=== PATIENT | female | born 1940 | race African-American/Black ===

== ENCOUNTER 2019-09-08 09:39 | Outpatient (CLI) | payer MEDICARE, SELFPAY ==
[2019-09-08 10:28] LABS: Basophils Percent Auto 0.8 % (0.2-1.2); Eosinophils Absolute Auto 0.1 K/mm3 (0-0.3); Eosinophils Percent Auto 1.3 % (0-4.4); Hematocrit 30.9 % (37.0-47.0); Hemoglobin 9.6 g/dL (12.0-15.0); Immature Granulocyte Absolute 0.01 K/mm3 (0.00-0.031); Immature Granulocyte Percent A 0.3 % (0-0.5); Lymphocytes Absolute Auto 1.11 K/mm3 (0.9-3.2); Lymphocytes Percent Auto 29.2 % (18.3-44.2); Mean Corpuscular HGB Conc 31.1 g/dl (32-36); Mean Corpuscular Hemoglobin 27.5 pg (26-34); Mean Corpuscular Volume 88.5 fl (80-100); Mean Platelet Volume 9.5 fl (7.4-10.4); Monocytes Absolute Auto 0.3 K/mm3 (0.1-0.6); Monocytes Percent Auto 8.9 % (2.6-8.5); Neutrophils Absolute Auto 2.3 K/mm3 (1.3-6.7); Neutrophils Percent Auto 59.5 % (45.5-73.1); Platelet Count Result 341 k/mm3 (150-375); Red Blood Count 3.49 M/mm3 (4.2-5.4); Red Cell Distribution Width 15.6 % (11.5-14.5); White Blood Count 3.8 K/mm3 (4.5-10.0)
[2019-09-08 10:41] LABS: Appearance Urine Clear (Clear); Bilirubin Urine Negative (Negative); Blood Urine Negative (Negative); Color Urine Yellow (Yellow); Glucose Urine UA Negative (Negative); Ketones Urine Negative (Negative); Leukocyte Esterase Ur 3+ LEU/UL (NEGATIVE); Nitrate Urine Negative (Negative); Protein Urine Negative (Negative); Specific Grav Ur 1.015 (1.001-1.035); Urobilinogen Urine 0.2 mg/dL (<2.0); pH Urine 5.5 (5.0-9.0)
[2019-09-08 10:54] LABS: LDL Cholesterol Direct 76 mg/dL
[2019-09-08 11:01] LABS: Add Urine Microscopic? YES
[2019-09-08 11:07] LABS: Thyroid Stimulating Hormone 0.114 uIU/mL (0.465-4.680)
[2019-09-08 11:10] LABS: Mucus Urine Rare /lpf; Squamous Epithelial Cell Urine Rare /hpf (Few); WBC Urine 31-50 /hpf (0-3)
[2019-09-08 11:15] LABS: Alanine Aminotransferase 20 U/L (4-35); Albumin Level 4.2 g/dL (3.5-5.1); Alkaline Phosphatase 61 U/L (38-126); Aspartate Amino Transferase 25 U/L (14-36); Blood Urea Nitrogen 28 mg/dL (7-17); Calcium 9.2 mg/dL (8.4-10.2); Carbon Dioxide 28 mmol/L (22-30); Chloride 101 mmol/L (98-107); Cholesterol 159 mg/dL (0-200); Estimated Glomerular Filt Rate 58; Glucose 107 mg/dL (65-105)
[2019-09-08 11:16] LABS: Bilirubin,Total 0.3 mg/dL (0.2-1.3); Potassium 4.2 mmol/L (3.4-5.0); Sodium 135 mmol/L (137-145)
[2019-09-08 11:34] LABS: Creatinine Urine 57.1 mg/dL
[2019-09-08 11:38] LABS: Microalbumin Urine Random 27.4 mg/L (0-16.7)
[2019-09-08 12:13] LABS: Hemoglobin A1C 5.8 % (<5.7)
[2019-09-08 12:55] LABS: HDL Direct 58 mg/dL; Triglycerides 51 mg/dL (<150)
== END 2019-09-08 09:40 | disposition home or self-care (01) ==
PROVIDERS: PCP Family Medicine; Visit Provider Family Medicine
DX: E11.9 Type 2 diabetes mellitus without complications (principal); E78.2 Mixed hyperlipidemia; I10 Essential (primary) hypertension; R53.83 Other fatigue
CPT/HCPCS: 36415; 80053; 80061; 81001; 81003; 82043; 83036; 84443; 85025; 85027

== ENCOUNTER 2020-01-19 09:45 | Outpatient (CLI) | payer MEDICARE, SELFPAY ==
[2020-01-19 10:16] LABS: Basophils Absolute Auto 0.1 K/mm3 (0.0-0.1); Basophils Percent Auto 1.3 % (0.2-1.2); Eosinophils Absolute Auto 0.1 K/mm3 (0-0.3); Eosinophils Percent Auto 2.4 % (0-4.4); Hematocrit 32.4 % (37.0-47.0); Hemoglobin 10.3 g/dL (12.0-15.0); Immature Granulocyte Absolute 0.01 K/mm3 (0.00-0.031); Immature Granulocyte Percent A 0.2 % (0-0.5); Lymphocytes Percent Auto 28.6 % (18.3-44.2); Mean Corpuscular HGB Conc 31.8 g/dl (32-36); Mean Corpuscular Hemoglobin 28.3 pg (26-34); Mean Platelet Volume 9.7 fl (7.4-10.4); Monocytes Absolute Auto 0.4 K/mm3 (0.1-0.6); Monocytes Percent Auto 7.9 % (2.6-8.5); Neutrophils Absolute Auto 2.7 K/mm3 (1.3-6.7); Neutrophils Percent Auto 59.6 % (45.5-73.1); Platelet Count Result 359 k/mm3 (150-375); Red Blood Count 3.64 M/mm3 (4.2-5.4); Red Cell Distribution Width 15.9 % (11.5-14.5); White Blood Count 4.5 K/mm3 (4.5-10.0)
[2020-01-19 10:26] LABS: Alanine Aminotransferase 18 U/L (4-35); Albumin Level 4.3 g/dL (3.5-5.1); Alkaline Phosphatase 72 U/L (38-126); Anion Gap 14.1 mmol/L (7-16); Aspartate Amino Transferase 25 U/L (14-36); Bilirubin,Total 0.3 mg/dL (0.2-1.3); Blood Urea Nitrogen 21 mg/dL (7-17); Calcium 9.1 mg/dL (8.4-10.2); Carbon Dioxide 25 mmol/L (22-30); Chloride 101 mmol/L (98-107); Estimated Glomerular Filt Rate 58; Glucose 112 mg/dL (65-105); Potassium 4.1 mmol/L (3.4-5.0); Sodium 136 mmol/L (137-145)
[2020-01-19 10:30] LABS: Hemoglobin A1C 5.6 % (<5.7)
[2020-01-19 10:32] LABS: Add Urine Microscopic? YES; Appearance Urine Clear (Clear); Bacteria Urine Trace /hpf; Bilirubin Urine Negative (Negative); Blood Urine Negative (Negative); Color Urine Yellow (Yellow); Glucose Urine UA Negative (Negative); Ketones Urine Negative (Negative); Leukocyte Esterase Ur 2+ LEU/UL (NEGATIVE); Mucus Urine Rare /lpf; Nitrate Urine Negative (Negative); Protein Urine Negative (Negative); RBC Urine 0-2 /hpf (0-2); Specific Grav Ur 1.014 (1.001-1.035); Squamous Epithelial Cell Urine Occasional /hpf (Few); Urobilinogen Urine Negative mg/dL (<2.0); WBC Urine 16-20 /hpf (0-3)
[2020-01-19 10:58] LABS: Thyroid Stimulating Hormone 0.073 uIU/mL (0.465-4.680)
== END 2020-01-19 09:46 | disposition home or self-care (01) ==
PROVIDERS: PCP Family Medicine; Visit Provider Physician Assistant
DX: D64.9 Anemia, unspecified (principal); E11.319 Type 2 diabetes mellitus with unspecified diabetic retinopathy without macular edema; I10 Essential (primary) hypertension; R31.9 Hematuria, unspecified; R79.89 Other specified abnormal findings of blood chemistry
CPT/HCPCS: 36415; 80053; 81001; 83036; 84443; 85025

== ENCOUNTER 2020-05-18 08:22 | Outpatient (CLI) | payer MEDICARE, SELFPAY ==
[2020-05-18 08:54] LABS: Hemoglobin A1C 5.7 % (<5.7)
[2020-05-18 09:02] LABS: Alanine Aminotransferase 14 U/L (4-35); Albumin Level 4.2 g/dL (3.5-5.1); Alkaline Phosphatase 65 U/L (38-126); Anion Gap 10 mmol/L (8-16); Aspartate Amino Transferase 25 U/L (14-36); Bilirubin,Total 0.2 mg/dL (0.2-1.3); Blood Urea Nitrogen 35 mg/dL (7-17); Calcium 9.3 mg/dL (8.4-10.2); Carbon Dioxide 25 mmol/L (22-30); Chloride 105 mmol/L (98-107); Cholesterol 245 mg/dL (0-200); Estimated Glomerular Filt Rate 44; Glucose 119 mg/dL (65-105); HDL Direct 53 mg/dL; Potassium 3.9 mmol/L (3.4-5.0); Sodium 140 mmol/L (137-145); Triglycerides 73 mg/dL (<150)
[2020-05-18 09:13] LABS: LDL Cholesterol Direct 155 mg/dL
== END 2020-05-18 08:23 | disposition home or self-care (01) ==
PROVIDERS: PCP Family Medicine; Visit Provider Physician Assistant
DX: E11.319 Type 2 diabetes mellitus with unspecified diabetic retinopathy without macular edema (principal); E78.2 Mixed hyperlipidemia; I10 Essential (primary) hypertension
CPT/HCPCS: 36415; 80053; 80061; 83036

== ENCOUNTER 2020-06-14 13:02 | Outpatient (CLI) | payer MEDICARE, SELFPAY ==
[2020-06-14 14:07] LABS: Anion Gap 8 mmol/L (8-16); Blood Urea Nitrogen 26 mg/dL (7-17); Calcium 9.1 mg/dL (8.4-10.2); Carbon Dioxide 27 mmol/L (22-30); Chloride 100 mmol/L (98-107); Estimated Glomerular Filt Rate 53; Glucose 104 mg/dL (65-105); Potassium 4.4 mmol/L (3.4-5.0); Sodium 135 mmol/L (137-145)
== END 2020-06-14 13:03 | disposition home or self-care (01) ==
LOC: ANHLAB 13:03
PROVIDERS: PCP Family Medicine; Visit Provider Internal Medicine Cardiovascular Disease
DX: E11.59 Type 2 diabetes mellitus with other circulatory complications (principal); I10 Essential (primary) hypertension
CPT/HCPCS: 36415; 80048

== ENCOUNTER 2020-09-25 10:10 | Outpatient (CLI) | payer MEDICARE, SELFPAY ==
[2020-09-25 10:39] LABS: Hemoglobin A1C 6.5 % (<5.7)
== END 2020-09-25 10:11 | disposition home or self-care (01) ==
LOC: ANHLAB 10:12
PROVIDERS: PCP Family Medicine; Visit Provider Family Medicine
DX: E11.319 Type 2 diabetes mellitus with unspecified diabetic retinopathy without macular edema (principal)
CPT/HCPCS: 36415; 83036

== ENCOUNTER 2021-03-15 10:16 | Outpatient (CLI) | payer MEDICARE, SELFPAY ==
[2021-03-15 10:56] LABS: Alanine Aminotransferase 14 U/L (4-35); Albumin Level 4.4 g/dL (3.5-5.1); Alkaline Phosphatase 81 U/L (38-126); Anion Gap 10 mmol/L (8-16); Aspartate Amino Transferase 20 U/L (14-36); Bilirubin,Total 0.2 mg/dL (0.2-1.3); Blood Urea Nitrogen 37 mg/dL (7-17); Calcium 9.3 mg/dL (8.4-10.2); Carbon Dioxide 15 mmol/L (22-30); Chloride 112 mmol/L (98-107); Cholesterol 294 mg/dL (0-200); Estimated Glomerular Filt Rate 35; Glucose 108 mg/dL (65-110); HDL Direct 62 mg/dL; Potassium 6.5 mmol/L (3.4-5.0); Sodium 137 mmol/L (137-145); Triglycerides 121 mg/dL (<150)
[2021-03-15 11:03] LABS: LDL Cholesterol Direct 155 mg/dL
[2021-03-15 11:23] LABS: Hemoglobin A1C 6.6 % (<5.7)
== END 2021-03-15 10:17 | disposition home or self-care (01) ==
PROVIDERS: PCP Family Medicine; Visit Provider Family Medicine
DX: E11.319 Type 2 diabetes mellitus with unspecified diabetic retinopathy without macular edema (principal); E78.2 Mixed hyperlipidemia; I10 Essential (primary) hypertension; Z00.00 Encounter for general adult medical examination without abnormal findings
CPT/HCPCS: 36415; 80053; 80061; 83036

== ENCOUNTER 2021-03-15 12:07 | Observation (INO) | payer MEDICARE, SELFPAY ==
[2021-03-15] VITALS (12 sets, daily range): BP systolic 127–180; BP diastolic 62–76; PULSE 60–74; RESP 14–21; TEMP 36.1–36.4; O2SAT 97–100
--- NOTE | ~2021-03-15 | XR_ITS ---
EXAMINATION: XR chest 1V portable EXAM DATE: 03/15/2021 15:56 INDICATION: Fatigue. TECHNIQUE: Portable AP frontal chest x-ray was obtained. There is no prior study for comparison. FINDINGS: The lungs are clear. There are no pleural effusions. The cardiomediastinal silhouette is within normal limits. There is no pneumothorax suspected. The bones and soft tissues are unremarkab le. IMPRESSION: No acute cardiopulmonary findings. Reviewed, dictated and finalized at location B.
--- NOTE | 2021-03-15 12:37 | ECG_ITS ---
Measurements Intervals [place] Rate: 63 P: 26 DC: 174 QRS: 5 QRSD: 82 T: 52 QT: 365 QTc: 375 Interpretive Statements SINUS RHYTHM VOLTAGE CRITERIA FOR LVH BASELINE ARTIFACT- I, II, AVR, AVL, AVF, V1, V3-V6 BORDERLINE ECG Electronically Signed On 03-15-2021 14:07:08 CDT by Papo Roper D.O.
--- NOTE | 2021-03-15 13:21 | ED.RECABL ---
HPI - Recheck/Abnormal Lab/Rx General Chief Complaint: Recheck/Abnormal Lab/Rx Stated Complaint: ABN LABS Time Seen by Provider: 03/15/21 12:37 Source: patient and RN notes reviewed Mode of arrival: ambulatory Limitations: no limitations History of Present Illness HPI narrative: This is a 80 year old female who presents for evaluation of abnormal labs. Patient had labs drawn today as outpatient for routine follow up with her doctor. She was told to come to ER because her potassium was elevated. Patient denies any complaints other than malaise that has been present for while. She denies chest pain, cough, fever , nausea, vomiting, abdominal pain or diarrhea. She has not taken any of her medications today. She denies taking potassium supplements. She does states she is not eating a drink a lot because she is taking care of her who is ill. Related Data Home Medications Medication Instructions Recorded Confirmed spironolactone 25 mg tablet 25 mg PO DAILY 09/26/20 03/15/21 chlorthalidone 25 mg PO DAILY 03/15/21 03/15/21 diclofenac sodium 75 mg PO BID 03/15/21 03/15/21 isosorbide mononitrate 60 mg PO DAILY 03/15/21 03/15/21 nebivolol [Bystolic] 20 mg PO DAILY 03/15/21 03/15/21 Allergies Allergy/AdvReac Type Severity Reaction Status Date / Time RADHA Inhibitors Allergy Unknown Unknown Verified 03/15/21 20:46 naproxen Allergy Unknown Unknown Verified 03/15/21 20:46 Review of Systems Review of Systems: All systems reviewed & are unremarkable except as noted in HPI and below PMFSH Past Medical History Medical History (Updated 03/15/21 @ 23:26 by Felicita Barone MD) Aortic stenosis Echo in June 2020 showed mild to moderate aortic stenosis with a valve area of 1.19 cm?. Chronic bilateral low back pain Chronic kidney disease, stage 3 Creatinine ranges between 1.1 and 1.20 Congestive heart failure Diabetic retinopathy Essential (primary) hypertension Mixed hyperlipidemia Type 2 diabetes mellitus Surgical History Surgical History (Updated 03/15/21 @ 22:53 by Fanny Vale PA-C) History of arthroscopy of right knee History of hysterectomy Family History Family History Father Cerebrovascular accident Family history of diabetes mellitus in first degree relative Family history of coronary artery disease Mother Family history of coronary artery disease Social History Social History (Updated 03/15/21 @ 22:54 by Fanny Vale PA-C) Social History: Surrogate decision-maker: Jay Valencia, spouse. CODE STATUS: Full code. Smoking status: Never smoker Alcohol intake: never Substance use: never Substance use type: does not use Additional living arrangements comments: Patient lives in [place] with her . Additional occupation/education comments: Retired. Exam Const: General: no acute distress and alert Orientation/consciousness: patient oriented x3 Eyes: EOM: EOMs intact bilaterally Chest: Chest palpation & inspection: normal inspection of the chest Resp: Effort & Inspection: normal respiratory effort and no retractions Auscultation: clear to auscultation bilaterally Cardio: Rate: regular rate Rhythm: regular rhythm Heart sounds: no murmurs GI: GI Palp: Yes Soft to palpation, No Tenderness to palpation present (GI) and No Guarding due to palpation present (GI) Auscultation: normal bowel sounds Skin: General skin exam: normal color Rashes: no rashes Neuro: General: patient oriented x3, moves all extremities and CN's II-XI intact bilaterally Psych: Mental Status: mental status grossly normal Affect: normal affect Course Reevaluation(s) Reevaluation #1: I Discussed with patient that she will need to be admitted. She has been given medication. She has increased in Creatinine so will hydrate to reduce potassium as well. Date: 03/15/21 Time: 17:00 Consultations Con
[2021-03-15 14:26] LABS: Basophils Absolute Auto 0.1 K/mm3 (0.0-0.1); Basophils Percent Auto 1.1 % (0.2-1.2); Eosinophils Absolute Auto 0.1 K/mm3 (0-0.3); Eosinophils Percent Auto 1.1 % (0-4.4); Hematocrit 37.5 % (37.0-47.0); Hemoglobin 11.5 g/dL (12.0-15.0); Immature Granulocyte Absolute 0.02 K/mm3 (0.00-0.031); Immature Granulocyte Percent A 0.4 % (0-0.5); Lymphocytes Absolute Auto 1.45 K/mm3 (0.9-3.2); Lymphocytes Percent Auto 31.3 % (18.3-44.2); Mean Corpuscular HGB Conc 30.7 g/dl (32-36); Mean Corpuscular Hemoglobin 30.3 pg (26-34); Mean Corpuscular Volume 98.7 fl (80-100); Mean Platelet Volume 9.4 fl (7.4-10.4); Monocytes Absolute Auto 0.3 K/mm3 (0.1-0.6); Neutrophils Absolute Auto 2.8 K/mm3 (1.3-6.7); Neutrophils Percent Auto 60.1 % (45.5-73.1); Platelet Count Result 293 k/mm3 (150-375); Red Cell Distribution Width 12.9 % (11.5-14.5); White Blood Count 4.6 K/mm3 (4.5-10.0)
[2021-03-15 14:41] LABS: Add Urine Microscopic? YES; Appearance Urine Clear (Clear); Bilirubin Urine Negative (Negative); Blood Urine Negative (Negative); Color Urine Straw (Yellow); Glucose Urine UA Negative (Negative); Ketones Urine Negative (Negative); Leukocyte Esterase Ur Trace LEU/UL (Negative); Mucus Urine Rare /lpf; Nitrate Urine Negative (Negative); Protein Urine Negative (Negative); RBC Urine 0-2 /hpf (0-2); Specific Grav Ur 1.014 (1.001-1.035); Urobilinogen Urine Negative mg/dL (<2.0); WBC Urine 0-3 /hpf
[2021-03-15 15:01] LABS: Alanine Aminotransferase 15 U/L (4-35); Albumin Level 4.5 g/dL (3.5-5.1); Alkaline Phosphatase 80 U/L (38-126); Anion Gap 12 mmol/L (8-16); Aspartate Amino Transferase 23 U/L (14-36); Bilirubin,Total 0.2 mg/dL (0.2-1.3); Blood Urea Nitrogen 35 mg/dL (7-17); Calcium 9.4 mg/dL (8.4-10.2); Carbon Dioxide 15 mmol/L (22-30); Chloride 111 mmol/L (98-107); Estimated Glomerular Filt Rate 35; Glucose 89 mg/dL (65-110); Magnesium 1.8 mg/dL (1.6-2.3); Potassium 6.3 mmol/L (3.4-5.0); Sodium 138 mmol/L (137-145)
[2021-03-15] MEDS: SODIUM CHLORIDE 0.9% IV 500 ML 999 ML IV CONT (15:20)
[2021-03-15] MEDS: SODIUM POLYSTYRENE SULFONONATE 15 GM/60 ML BTL 30 GM PO (15:20)
[2021-03-15] MEDS: ALBUTEROL SULFATE NEB 2.5 MG/0.5 ML INH 5 MG INHALATION (15:25)
[2021-03-15] MEDS: CALCIUM GLUC 1,000 MG/NS 50 ML 1,000 MG/50 ML BAG 100 MG IVPB (15:27)
[2021-03-15] MEDS: SODIUM BICARBONATE 8.4% 50 MEQ/50 ML VIAL IV PUSH (15:28)
[2021-03-15 15:31] LABS: Alveolar/Arterial O2 Gradient 19.5 mmHg; Base Excess ABG -10.6 mEq/l (+/-2.0); Device ROOM AIR; Fractional Inspired Oxygen 21 %; HCO3 ABG 14.4 mEq/l (22.0-26.0); Methemoglobin ABG 0.2 %THb (0-1.5); Oxygen Content ABG 15.4 %vol (16.0-22.0); Oxygen Saturation ABG 96.8 % (95.0-100.0); Oxyhemoglobin 96.4 % THb (90.0-100.0); PCO2 ABG 29.1 mmHg (35.0-45.0); PO2 ABG 95.4 mmHg (80.0-100.0); PO2 FiO2 Ratio Arterial Blood 4.54 %; Reduced Hemoglobin 3.4 %THb (0-5.0); Site Drawn RIGHT BRACHIAL; Total Hemoglobin 11.3 g/dL (12.0-18.0); pH ABG 7.311 (7.350-7.450)
[2021-03-15] MEDS: DEXTROSE 50% 25 GM/50 ML SYRINGE IV PUSH (16:50)
[2021-03-15] MEDS: INSULIN HUMAN REGULAR (*BKC) 100 UNITS/ML 10 UNITS IV PUSH (16:50)
[2021-03-15 17:36] LABS: Anion Gap 9 mmol/L (8-16); Blood Urea Nitrogen 33 mg/dL (7-17); Calcium 9.6 mg/dL (8.4-10.2); Carbon Dioxide 18 mmol/L (22-30); Chloride 110 mmol/L (98-107); Estimated Glomerular Filt Rate 41; Glucose 247 mg/dL (65-110); Potassium 6.1 mmol/L (3.4-5.0); Sodium 137 mmol/L (137-145)
[2021-03-15 18:27] LABS: Glucose Point of Care 97 mg/dl (65-105)
--- NOTE | 2021-03-15 19:12 | PC.NURSE ---
Report received and care of pt assumed at this time.
--- NOTE | 2021-03-15 20:45 | ADMGEN ---
This patient, Carmelina Valencia, was admitted to 2 Medical Room 259-01@ 1945. Patient/family oriented to hospital policies and general routines including ID bracelet, bed and alarms, visiting hours, pain management, procedures, bathroom and other care routines, personal items, smoking policy, room service/diet, and visiting hours. Information on how to activate the Rapid Response Team has been discussed. Patient/Family are encouraged to report perceived risks to care and to ask questions if they do not understand what they are told or what they should do.
[2021-03-15] MEDS: SODIUM CHLORIDE 0.9% IV 1,000 ML 75 ML IV CONT (21:06)
[2021-03-15 21:22] LABS: Glucose Point of Care 80 mg/dl (65-105)
--- NOTE | 2021-03-15 22:35 | PM.IMHP ---
H&P: HPI History of Present Illness Date/Time: 03/15/21 22:30 Chief Complaint: High potassium. Narrative: This is a 80-year old female with hypertension, congestive heart failure, chronic kidney disease, and diabetes who presented to the emergency department earlier today at the direction of her primary care provider for evaluation after she was found to have high potassium on a lab draw done in anticipation of an upcoming routine appointment. Hyperkalemia was confirmed in the emergency department with a potassium level of 6.3. Additionally her creatinine was elevated from baseline. Other than some mild fatigue which she attributes to caring for her sick at home, she has no complaints. She is not on potassium supplementation but is on a potassium sparing diuretic though she has been on that for quite some time. She has not been started on any new medications recently nor has she had any change in dosing. Her oral intake has been somewhat decreased if she has been busy caring for her but she has not had any nausea, vomiting, or diarrhea. Review of Systems Review of Systems: Twelve systems were reviewed with pertinent positives and negatives as per HPI. No fever, chills, or sweats. No syncope or near syncope. She denies cold and flu symptoms. No exposure to those positive for COVID 19. No chest pain or shortness of breath. She has not noticed a change in urine output. No significant NSAID use. She had an episode of cramping in her legs a couple weeks ago but that has since resolved. Except as documented, all other systems were reviewed and are negative. [facility] Past Medical History Medical History Aortic stenosis Echo in June 2020 showed mild to moderate aortic stenosis with a valve area of 1.19 cm?. Chronic bilateral low back pain Chronic kidney disease, stage 3 Creatinine ranges between 1.1 and 1.20 Congestive heart failure Diabetic retinopathy Essential (primary) hypertension Mixed hyperlipidemia Type 2 diabetes mellitus Surgical History Surgical History History of arthroscopy of right knee History of hysterectomy Family History Family History Father Cerebrovascular accident Family history of diabetes mellitus in first degree relative Family history of coronary artery disease Mother Family history of coronary artery disease Social History Social History (Updated 03/15/21 @ 23:53 by Fanny Vale PA-C) Social History: Surrogate decision-maker: Jay Valencia, spouse. CODE STATUS: Full code. Smoking status: Never smoker Alcohol intake: never Substance use: never Substance use type: does not use Additional living arrangements comments: Patient lives in [place] with her . 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 Meds Home Medications and Allergies Home Medications Medication Instructions Recorded Confirmed Type metformin 1,000 mg tablet 1,000 mg PO DAILY #90 tablet 05/22/20 03/15/21 Rx azelastine 137 mcg (0.1 %) nasal 1 spray INTRANASAL Q12H #30 ml 09/26/20 03/15/21 Rx spray aerosol spironolactone 25 mg tablet 25 mg PO DAILY 09/26/20 03/15/21 History losartan 50 mg tablet 50 mg PO DAILY #90 tablet 11/23/20 03/15/21 Rx verapamil 240 mg 24 hr 240 mg PO DAILY #90 cap 01/21/21 03/15/21 Rx capsule,extended release chlorthalidone 25 mg PO DAILY 03/15/21 03/15/21 History diclofenac sodium 75 mg PO BID 03/15/21 03/15/21 History isosorbide mononitrate 60 mg PO DAILY 03/15/21 03/15/21 History nebivolol [Bystolic] 20 mg PO DAILY 03/15/21 03/15/21 History Allergies Allergy/AdvReac Type Severity Reaction Status Date / Time RADHA Inhibitors Allergy Unknown Unknown Verified 03/15/21 20:46 naproxen Allergy Unknown Unknown Verified 03/15/21 20:46 Vital Signs V
[2021-03-15 23:20] LABS: Anion Gap 9 mmol/L (8-16); Blood Urea Nitrogen 30 mg/dL (7-17); Carbon Dioxide 16 mmol/L (22-30); Chloride 115 mmol/L (98-107); Estimated Glomerular Filt Rate 44; Glucose 95 mg/dL (65-110); Potassium 5.4 mmol/L (3.4-5.0); Sodium 140 mmol/L (137-145)
[2021-03-15 23:23] LABS: Hemoglobin A1C 6.6 % (<5.7)
[2021-03-16] VITALS: PULSE 60
[2021-03-16 00:43] LABS: Lactic Acid Reflex 0.5 mmol/L (0.7-2.1)
[2021-03-16] MEDS: LACTATED RINGERS 1,000 ML 100 ML IV CONT (01:18)
[2021-03-16 04:00] VITALS: PULSE 56
[2021-03-16 05:43] LABS: Basophils Percent Auto 0.6 % (0.2-1.2); Eosinophils Absolute Auto 0.1 K/mm3 (0-0.3); Eosinophils Percent Auto 1.9 % (0-4.4); Hematocrit 30.5 % (37.0-47.0); Hemoglobin 9.6 g/dL (12.0-15.0); Immature Granulocyte Absolute 0.01 K/mm3 (0.00-0.031); Immature Granulocyte Percent A 0.2 % (0-0.5); Lymphocytes Absolute Auto 1.47 K/mm3 (0.9-3.2); Lymphocytes Percent Auto 31.1 % (18.3-44.2); Mean Corpuscular HGB Conc 31.5 g/dl (32-36); Mean Corpuscular Volume 95.3 fl (80-100); Mean Platelet Volume 9.3 fl (7.4-10.4); Monocytes Absolute Auto 0.5 K/mm3 (0.1-0.6); Monocytes Percent Auto 10.4 % (2.6-8.5); Neutrophils Absolute Auto 2.6 K/mm3 (1.3-6.7); Neutrophils Percent Auto 55.8 % (45.5-73.1); Platelet Count Result 227 k/mm3 (150-375); Red Cell Distribution Width 12.8 % (11.5-14.5); White Blood Count 4.7 K/mm3 (4.5-10.0)
[2021-03-16 05:50] VITALS: BP 142/64; PULSE 58; RESP 18; TEMP 36.8; O2SAT 100
[2021-03-16 05:51] VITALS: BMI 23.6
[2021-03-16 05:56] LABS: Anion Gap 9 mmol/L (8-16); Blood Urea Nitrogen 26 mg/dL (7-17); Calcium 8.9 mg/dL (8.4-10.2); Carbon Dioxide 17 mmol/L (22-30); Chloride 114 mmol/L (98-107); Estimated CRCL calculation 24 ml/min; Estimated Glomerular Filt Rate 53; Glucose 80 mg/dL (65-110); Magnesium 1.6 mg/dL (1.6-2.3); Potassium 4.6 mmol/L (3.4-5.0); Sodium 140 mmol/L (137-145)
[2021-03-16 07:34] LABS: Glucose Point of Care 77 mg/dl (65-105)
[2021-03-16 08:00] VITALS: PULSE 58
[2021-03-16 08:19] VITALS: PULSE 76
[2021-03-16] MEDS: VERAPAMIL HCL ER 240 MG TABLET.ER PO (08:19)
[2021-03-16] MEDS: ISOSORBIDE MONONITRATE 60 MG TAB.ER.24H PO (08:19)
[2021-03-16] MEDS: AZELASTINE HCL NASAL 0.1% 137 MCG/SPR 30 ML BTL 1 SPRAY NASAL (08:19)
[2021-03-16] MEDS: NEBIVOLOL HCL 5 MG TABLET 20 MG PO (08:19)
[2021-03-16 11:51] LABS: Glucose Point of Care 125 mg/dl (65-105)
[2021-03-16 12:00] VITALS: PULSE 61
--- NOTE | 2021-03-16 13:17 | PM.DS ---
DS: Admitting Diagnosis Discharge Date 03/16/2021. Admitting Diagnosis SANDY Hyperkalemia Metabolic acidosis DS: Discharge Diagnosis Discharge Diagnosis (1) Acute on chronic renal failure: Code(s): N17.9 - Acute kidney failure, unspecified; N18.9 - Chronic kidney disease, unspecified Status: Acute (2) Metabolic acidosis: Code(s): E87.2 - Acidosis Status: Acute (3) Hyperkalemia: Code(s): E87.5 - Hyperkalemia Status: Acute DS: Summary Hospital Course Reason for hospitalization: Abnormal labs Hospital Course: This is a 80-year old lady with a past medical history including but not limited to hypertension, congestive heart failure, chronic kidney disease, and diabetes who presented to the emergency department on 03/15/2021 at the direction of her primary care provider for evaluation after she was found to have high potassium on a lab drawn done in anticipation of an upcoming routine appointment. Hyperkalemia was confirmed in the emergency department with a potassium level of 6.3. Additionally her creatinine was elevated from baseline. Other than some mild fatigue which she attributes to caring for her sick at home, she offered no complaints. She had not been on potassium supplementation but has been chronically on a ARB and a potassium sparing diuretic. She has not been started on any new medications recently nor has she had any change in dosing. Her oral intake has been somewhat decreased as she has been busy caring for her but she has not had any nausea, vomiting, or diarrhea. Her hyperkalemia was attributed to worsening renal function while on spironolactone. She was treated conservatively by witholding spironolactone and losartan. For her acute on chronic renal failure: as patient appears a bit dry on exam and she does admit to a decreased oral intake recently , she was rehydrated overnight with repeat renal function in a.m. showing improvement of creatinine from 1.4 to 1.2. Her metabolic acidosis was most likely due to worsening renal function Metformin was held and normal saline was changed to LR. She carries a diagnosis of essential (primary) hypertension: Her blood pressures were reviewed and they have been running anywhere from the 140s to 150s systolic. She was discharged home with instruction to monitor her BP daily while on chlorthalidone only.Type 2 diabetes mellitus: Metformin currently was held given worsening renal function and metabolic acidosis. As her SANDY has resolved, she can resume home metformin. Status at Discharge Overall status at discharge: patient is progressing back to baseline Time Spent with Patient Time attestation: Total time spent providing and/or coordinating discharge services: Time spent: Less than 30 minutes Exam Narrative: GENERAL: The patient is alert and oriented, in no apparent distress. He is pleasant and conversant in full sentences. HEENT: Pupils are equally round and briskly reactive to light. Extraocular muscles are intact. Oral mucous membranes are moist without lesions. NECK: The patient has no noted JVD. No adenopathy is appreciated. CHEST/LUNGS: Lungs are clear bilaterally without rhonchi, rales, or wheezes. There is no subcutaneous air appreciated. There is no tenderness to the chest wall. HEART: The patient has a regular rate and rhythm. No murmurs, rubs, or gallops are appreciated. Distal pulses are 2+. No carotid bruits appreciated. ABDOMEN: The patient?s abdomen is soft, nontender, and nondistended. Bowel sounds are positive. No organomegaly is appreciated. No masses are appreciated. EXTREMITIES: The patient has no peripheral edema. SKIN: The patient?s skin is warm and dry, without rashes or lesions. PSYCHIATRIC: The patient has normal mental status and has an appropriate affect. NEUROLOGIC: The patient has 5/5 strength to the upper and lower extremities bilaterally. Sensation is intact. Gait was not tested. DS: Data Data Completed and Pending
== END 2021-03-16 13:10 | disposition home or self-care (01) ==
LOC: ANHED 12:47 → ANH2MED 22:21
PROVIDERS: Physician Assistant; Admitting Provider Internal Medicine; Emergency Provider General Practice; PCP Family Medicine; Visit Provider Internal Medicine
DX: E87.5 Hyperkalemia (principal); I13.0 Hypertensive heart and chronic kidney disease with heart failure and stage 1 through stage 4 chronic kidney disease, or unspecified chronic kidney disease; E11.22 Type 2 diabetes mellitus with diabetic chronic kidney disease; N18.30 Chronic kidney disease, stage 3 unspecified; I50.9 Heart failure, unspecified; N17.9 Acute kidney failure, unspecified; E87.2 Acidosis; Z79.84 Long term (current) use of oral hypoglycemic drugs
CPT/HCPCS: 36415; 36600; 71045; 80048; 80053; 80061; 81001; 82375; 82805; 82948; 83036; 83050; 83605; 83735; 85025; 93005; 94640; 96361; 96365; 96375; 99285; A9270; G0378; J0610; J1815; J7030; J7040; J7120

== ENCOUNTER 2021-03-20 10:27 | Outpatient (CLI) | payer MEDICARE, SELFPAY ==
[2021-03-20 12:04] LABS: Alanine Aminotransferase 14 U/L (4-35); Albumin Level 4.5 g/dL (3.5-5.1); Alkaline Phosphatase 75 U/L (38-126); Anion Gap 9 mmol/L (8-16); Aspartate Amino Transferase 23 U/L (14-36); Bilirubin,Total 0.3 mg/dL (0.2-1.3); Blood Urea Nitrogen 31 mg/dL (7-17); Calcium 9.4 mg/dL (8.4-10.2); Carbon Dioxide 20 mmol/L (22-30); Chloride 107 mmol/L (98-107); Estimated Glomerular Filt Rate 41; Glucose 112 mg/dL (65-110); Potassium 4.7 mmol/L (3.4-5.0); Sodium 136 mmol/L (137-145)
== END 2021-03-20 10:28 | disposition home or self-care (01) ==
LOC: ANHLAB 10:29
PROVIDERS: PCP Family Medicine; Visit Provider Family Medicine
DX: E87.5 Hyperkalemia (principal)
CPT/HCPCS: 36415; 80053

== ENCOUNTER 2021-07-20 10:06 | Outpatient (CLI) | payer MEDICARE, SELFPAY ==
[2021-07-20 11:28] LABS: Hemoglobin A1C 7.3 % (<5.7)
[2021-07-20 12:55] LABS: Alanine Aminotransferase 21 U/L (4-35); Albumin Level 4.3 g/dL (3.5-5.1); Alkaline Phosphatase 87 U/L (38-126); Anion Gap 9 mmol/L (8-16); Aspartate Amino Transferase 27 U/L (14-36); Bilirubin,Total 0.3 mg/dL (0.2-1.3); Blood Urea Nitrogen 46 mg/dL (7-17); Calcium 9.1 mg/dL (8.4-10.2); Carbon Dioxide 21 mmol/L (22-30); Chloride 100 mmol/L (98-107); Estimated Glomerular Filt Rate 26; Glucose 126 mg/dL (65-110); Sodium 130 mmol/L (137-145)
== END 2021-07-20 10:07 | disposition home or self-care (01) ==
PROVIDERS: PCP Family Medicine; Visit Provider Physician Assistant
DX: E11.9 Type 2 diabetes mellitus without complications (principal); E87.5 Hyperkalemia
CPT/HCPCS: 36415; 80053; 83036

== ENCOUNTER 2021-08-06 14:09 | Outpatient (CLI) | payer MEDICARE, SELFPAY ==
[2021-08-06 15:38] LABS: Alanine Aminotransferase 12 U/L (4-35); Albumin Level 4.3 g/dL (3.5-5.1); Alkaline Phosphatase 81 U/L (38-126); Anion Gap 14 mmol/L (8-16); Aspartate Amino Transferase 20 U/L (14-36); Bilirubin,Total 0.3 mg/dL (0.2-1.3); Blood Urea Nitrogen 47 mg/dL (7-17); Carbon Dioxide 17 mmol/L (22-30); Chloride 95 mmol/L (98-107); Estimated Glomerular Filt Rate 31; Glucose 98 mg/dL (65-110); Potassium 5.6 mmol/L (3.4-5.0); Sodium 126 mmol/L (137-145)
== END 2021-08-06 14:10 | disposition home or self-care (01) ==
PROVIDERS: PCP Family Medicine; Visit Provider Family Medicine
DX: E87.5 Hyperkalemia (principal)
CPT/HCPCS: 36415; 80053

== ENCOUNTER 2021-08-12 12:32 | Outpatient (CLI) | payer MEDICARE, SELFPAY ==
[2021-08-12 13:25] LABS: Anion Gap 9 mmol/L (8-16); Blood Urea Nitrogen 35 mg/dL (7-17); Calcium 9.1 mg/dL (8.4-10.2); Carbon Dioxide 21 mmol/L (22-30); Chloride 96 mmol/L (98-107); Estimated Glomerular Filt Rate 44; Glucose 113 mg/dL (65-110); Potassium 5.2 mmol/L (3.4-5.0); Sodium 126 mmol/L (137-145)
== END 2021-08-12 12:33 | disposition home or self-care (01) ==
PROVIDERS: PCP Family Medicine; Visit Provider Family Medicine
DX: E87.5 Hyperkalemia (principal)
CPT/HCPCS: 36415; 80048

== ENCOUNTER 2021-08-29 14:52 | Outpatient (CLI) | payer MEDICARE, SELFPAY ==
--- NOTE | ~2021-08-29 | MM_ITS ---
EXAMINATION: MM screening [facility] BI w ed HISTORY: Screening mammogram TECHNIQUE: Craniocaudal and mediolateral oblique 3-D tomosynthesis images were obtained and synthetic 2-D images were generated. CAD analysis was submitted and interpreted. COMPARISON: 12/15/2017, 10/21/2016, 10/02/2015 BREAST PARENCHYMAL COMPOSITION: The breasts are extremely dense, which lowers the sensitivity of mamm ography. FINDINGS: There is no evidence of suspicious mass, calcification, or architectural distortion to sugg est malignancy in either breast. There has been no suspicious interval change. IMPRESSION: 1. No mammographic evidence of malignancy. 2. Recommend routine screening mammography in one year. BI-RADS Category 1: Negative Reviewed, dictated and finalized at location A. E PRINCIPAL
== END 2021-08-29 14:53 | disposition home or self-care (01) ==
LOC: ANHIMG 14:53
PROVIDERS: PCP Family Medicine; Visit Provider Family Medicine
DX: Z12.31 Encounter for screening mammogram for malignant neoplasm of breast (principal)
CPT/HCPCS: 77063; 77067

== ENCOUNTER 2021-12-09 12:40 | Outpatient (CLI) | payer MEDICARE, SELFPAY ==
[2021-12-09 13:28] LABS: Hematocrit 32.3 % (37.0-47.0); Hemoglobin 10.1 g/dL (12.0-15.0); Mean Corpuscular HGB Conc 31.3 g/dl (32-36); Mean Corpuscular Hemoglobin 28.2 pg (26-34); Mean Corpuscular Volume 90.2 fl (80-100); Mean Platelet Volume 9.4 fl (7.4-10.4); Platelet Count Result 329 k/mm3 (150-375); Red Blood Count 3.58 M/mm3 (4.2-5.4); Red Cell Distribution Width 13.1 % (11.5-14.5); White Blood Count 9.6 K/mm3 (4.5-10.0)
[2021-12-09 13:44] LABS: Hemoglobin A1C 7.5 % (<5.7)
[2021-12-09 13:45] LABS: Alanine Aminotransferase 25 U/L (6-35); Albumin Level 4.1 g/dL (3.5-5.1); Alkaline Phosphatase 88 U/L (38-126); Anion Gap 7 mmol/L (8-16); Aspartate Amino Transferase 26 U/L (14-36); Bilirubin,Total 0.2 mg/dL (0.2-1.3); Blood Urea Nitrogen 24 mg/dL (7-17); Calcium 8.5 mg/dL (8.4-10.2); Carbon Dioxide 26 mmol/L (22-30); Chloride 98 mmol/L (98-107); Cholesterol 261 mg/dL (0-200); Estimated Glomerular Filt Rate 53; Glucose 132 mg/dL (65-110); HDL Direct 63 mg/dL; Potassium 3.8 mmol/L (3.4-5.0); Sodium 131 mmol/L (137-145); Triglycerides 62 mg/dL (<150)
[2021-12-09 13:56] LABS: LDL Cholesterol Direct 135 mg/dL
[2021-12-09 13:58] LABS: Creatinine Urine 49.1 mg/dL
[2021-12-09 14:03] LABS: MALB Creatinine Ratio 67.6 mg/g (0-30); Microalbumin Urine Random 33.2 mg/L (0-16.7)
[2021-12-09 14:10] LABS: Thyroid Stimulating Hormone 0.047 uIU/mL (0.465-4.680)
== END 2021-12-09 12:41 | disposition home or self-care (01) ==
LOC: ANHLAB 12:42
PROVIDERS: PCP Family Medicine; Visit Provider Family Medicine
DX: E11.9 Type 2 diabetes mellitus without complications (principal); E78.2 Mixed hyperlipidemia; I10 Essential (primary) hypertension
CPT/HCPCS: 36415; 80053; 80061; 82043; 83036; 84443; 85027

== ENCOUNTER 2021-12-11 11:27 | Outpatient (CLI) | payer MEDICARE, SELFPAY ==
--- NOTE | ~2021-12-11 | XR_ITS ---
EXAMINATION: XR abdomen/kub 1V DATE: 12/11/2021 11:46 INDICATION: Constipation, unspecified. TECHNIQUE: A supine view of the abdomen on 2 radiographs was obtained. COMPARISON: None. FINDINGS: The rectum is distended. There is a moderate volume of stool in the colon. Small bowel is n ormal in caliber. IMPRESSION: 1. Moderate volume of stool in the colon with distended rectum. Reviewed, dictated and finalized at location B.
== END 2021-12-11 11:28 | disposition home or self-care (01) ==
LOC: ANHIMG 11:34
PROVIDERS: PCP Family Medicine; Visit Provider Family Medicine
DX: K59.00 Constipation, unspecified (principal)
CPT/HCPCS: 74018

== ENCOUNTER 2022-03-20 11:59 | Observation (INO) | payer MEDICARE, SELFPAY ==
[2022-03-20] VITALS (14 sets, daily range): BP systolic 123–174; BP diastolic 67–83; PULSE 65–75; RESP 14–20; TEMP 36.3–36.8; O2SAT 98–100; BMI 20.9
--- NOTE | ~2022-03-20 | XR_ITS ---
XR chest 1V portable 03/20/2022 13:35 Indication: Weakness. Dyspnea. Procedure: AP portable chest Comparison: 03/15/2021 Findings: Heart size upper normal. No focal air space disease, pulmonary edema, pleural effusion or s uspected pneumothorax. Impression: 1: No acute cardiopulmonary disease. Reviewed, dictated and finalized at location A. Impression: 1: No acute cardiopulmonary disease.
[2022-03-20 12:10] LABS: Glucose Point of Care > 500 mg/dl (65-105)
--- NOTE | 2022-03-20 12:31 | ED.RECABL ---
HPI - Recheck/Abnormal Lab/Rx General Chief Complaint: Recheck/Abnormal Lab/Rx Stated Complaint: BS today 495 Time Seen by Provider: 03/20/22 12:30 History of Present Illness HPI narrative: Patient is an 81-year-old female with a history of hypertension, diabetes, CKD, CHF, hyperlipidemia presenting with elevated blood glucose. Patient states over the last several weeks she has been feeling generally weak and shaky. States that she has had a decreased appetite but states she has been thirstier than normal. States she has been drinking a lot of water. Patient states that she had a sore throat last week and checked herself for COVID which was negative. Today, the patient checked her blood sugar and it was 495 which is the highest its ever been. She denies headache, fevers, cough, chest pain, shortness of breath, abdominal pain, nausea or vomiting, diarrhea, dysuria, leg swelling. Related Data Home Medications Medication Instructions Recorded Confirmed isosorbide mononitrate 60 mg 30 mg PO DAILY 12/11/21 03/20/22 tablet,extended release 24 hr Allergies Allergy/AdvReac Type Severity Reaction Status Date / Time RADHA Inhibitors Allergy Unknown Unknown Verified 03/20/22 12:10 naproxen Allergy Unknown Unknown Verified 03/20/22 12:10 Review of Systems Review of Systems: All systems reviewed & are unremarkable except as noted in HPI and below PMFSH Past Medical History Medical History (Updated 12/11/21 @ 12:23 by Sujit Palomo MD) Aortic stenosis Echo in June 2020 showed mild to moderate aortic stenosis with a valve area of 1.19 cm?. Chronic bilateral low back pain Chronic kidney disease, stage 3 Creatinine ranges between 1.1 and 1.20 Congestive heart failure Diabetic retinopathy Essential (primary) hypertension Mixed hyperlipidemia Type 2 diabetes mellitus Surgical History Surgical History History of arthroscopy of right knee History of hysterectomy Family History Family History Father Cerebrovascular accident Family history of diabetes mellitus in first degree relative Family history of coronary artery disease Mother Family history of coronary artery disease Social History Social History Social History: Surrogate decision-maker: Jay Valencia, spouse. CODE STATUS: Full code. Smoking status: Never smoker Alcohol intake: never Substance use: never Substance use type: does not use Additional living arrangements comments: Patient lives in [place] with her . 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 Spiritual care concerns: No Exam Narrative: GENERAL: Well-appearing, well-nourished, and in no acute distress. HEAD: Normocephalic, atraumatic. EYES: PERRLA and EOMI. ENT: Nares clear, no rhinorrhea or epistaxis. Mucous membranes moist. NECK: Supple. CHEST: Clear to auscultation. No respiratory distress. HEART: Regular rate and rhythm. No murmur heard. Normal peripheral pulses. ABDOMEN: Soft, nontender, nondistended, normal active bowel sounds. EXTREMITIES: Normal range of motion. No edema. SKIN: Warm, dry, no rash. NEURO: No focal deficits. Alert and oriented x3. PSYCH: Normal mood and affect. Course Vital Signs Vital signs: Vital Signs Temperature 97.4 F L 03/20/22 12:07 Pulse Rate 75 03/20/22 12:07 Respiratory Rate 16 03/20/22 12:07 Blood Pressure 174/83 H 03/20/22 12:07 Pulse Oximetry 100 03/20/22 12:07 Temperature 98.2 F 03/20/22 20:00 Pulse Rate 68 03/20/22 20:00 Respiratory Rate 16 03/20/22 20:00 Blood Pressure 132/67 03/20/22 20:00 Pulse Oximetry 98 03/20/22 20:00 Oxygen Delivery Room Air 03/20/22 20:00 MDM - Recheck/Abnormal Lab/Rx MDM Narrative Medical decision making narrative: Patient is an 81-year-old female
[2022-03-20 13:04] LABS: Alveolar/Arterial O2 Gradient 19.7 mmHg; Base Excess ABG -4.8 mEq/l (+/-2.0); Carboxyhemoglobin 0.2 % THb (0-2.0); Fractional Inspired Oxygen 21 %; Methemoglobin ABG 0.1 %THb (0-1.5); Oxygen Content ABG 17.4 %vol (16.0-22.0); Oxygen Saturation ABG 96.3 % (95.0-100.0); Oxyhemoglobin 95.5 % THb (90.0-100.0); PCO2 ABG 36.5 mmHg (35.0-45.0); PO2 ABG 86.3 mmHg (80.0-100.0); PO2 FiO2 Ratio Arterial Blood 4.11 %; Reduced Hemoglobin 4.2 %THb (0-5.0); Total Hemoglobin 12.9 g/dL (12.0-18.0); pH ABG 7.357 (7.350-7.450)
[2022-03-20 13:06] LABS: Device ROOM AIR; Modified Allen's Test Pass; Site Drawn RIGHT RADIAL
[2022-03-20 13:14] LABS: Basophils Percent Auto 0.7 % (0.2-1.2); Eosinophils Percent Auto 0.4 % (0-4.4); Hematocrit 42.9 % (37.0-47.0); Hemoglobin 13.7 g/dL (12.0-15.0); Immature Granulocyte Absolute 0.03 K/mm3 (0.00-0.031); Immature Granulocyte Percent A 0.5 % (0-0.5); Lymphocytes Absolute Auto 1.62 K/mm3 (0.9-3.2); Lymphocytes Percent Auto 29.2 % (18.3-44.2); Mean Corpuscular HGB Conc 31.9 g/dl (32-36); Mean Corpuscular Hemoglobin 28.3 pg (26-34); Mean Corpuscular Volume 88.6 fl (80-100); Mean Platelet Volume 10.3 fl (7.4-10.4); Monocytes Absolute Auto 0.3 K/mm3 (0.1-0.6); Monocytes Percent Auto 5.2 % (2.6-8.5); Neutrophils Absolute Auto 3.6 K/mm3 (1.3-6.7); Platelet Count Result 344 k/mm3 (150-375); Red Blood Count 4.84 M/mm3 (4.2-5.4); White Blood Count 5.6 K/mm3 (4.5-10.0)
[2022-03-20 13:17] LABS: Alanine Aminotransferase 36 U/L (6-35); Albumin Level 4.9 g/dL (3.5-5.1); Alkaline Phosphatase 124 U/L (38-126); Anion Gap 22 mmol/L (8-16); Aspartate Amino Transferase 32 U/L (14-36); Bilirubin,Total 0.6 mg/dL (0.2-1.3); Blood Urea Nitrogen 37 mg/dL (7-17); Calcium 9.8 mg/dL (8.4-10.2); Carbon Dioxide 23 mmol/L (22-30); Chloride 87 mmol/L (98-107); Estimated Glomerular Filt Rate 40; Glucose 524 mg/dL (65-110); Magnesium 1.9 mg/dL (1.6-2.3); Phosphorus 4.5 mg/dL (2.5-4.5); Potassium 5.2 mmol/L (3.4-5.0); Sodium 132 mmol/L (137-145)
[2022-03-20 13:27] LABS: Appearance Urine Slightly Cloudy (Clear); Bilirubin Urine 2+ (Negative); Blood Urine Trace-lysed (Negative); Color Urine Yellow (Yellow); Glucose Urine UA 3+ mg/dL (Negative); Ketones Urine 2+ mg/dL (Negative); Leukocyte Esterase Ur 2+ LEU/UL (Negative); Nitrate Urine Negative (Negative); Protein Urine 1+ mg/dL (Negative); Specific Grav Ur 1.015 (1.001-1.035); Urobilinogen Urine 0.2 mg/dL (<2.0); pH Urine 5.5 (5.0-9.0)
[2022-03-20 13:34] LABS: RBC Urine 21-50 /hpf (0-2); Squamous Epithelial Cell Urine Many /hpf (Few); WBC Urine >75 /hpf
[2022-03-20 13:41] LABS: Add Urine Microscopic? YES
[2022-03-20] MEDS: SODIUM CHLORIDE 0.9% IV 1,000 ML 999 ML IV CONT ×2 (13:49→16:08)
[2022-03-20] MEDS: INSULIN HUMAN REGULAR (*BKC) 100 UNITS/ML 10 UNITS IV PUSH (16:03)
[2022-03-20 16:34] LABS: Potassium 4.7 mmol/L (3.4-5.0)
[2022-03-20 16:37] LABS: Anion Gap 18 mmol/L (8-16); Blood Urea Nitrogen 34 mg/dL (7-17); Calcium 8.7 mg/dL (8.4-10.2); Carbon Dioxide 21 mmol/L (22-30); Chloride 93 mmol/L (98-107); Estimated Glomerular Filt Rate 40; Glucose 434 mg/dL (65-110); Sodium 132 mmol/L (137-145)
[2022-03-20 17:08] LABS: SARS-CoV-2 RNA PCR Negative
[2022-03-20] MEDS: SODIUM CHLORIDE 0.9% IV 1,000 ML 150 ML IV CONT (17:21)
[2022-03-20] MEDS: INSULIN HUMAN REGULAR (*BKC) 100 UNITS in SODIUM CHLORIDE 0.9% IV 99 ML IV CONT (17:23)
[2022-03-20 17:32] LABS: Glucose Point of Care 274 mg/dl (65-105)
[2022-03-20 17:32] LABS: Glucose Point of Care 445 mg/dl (65-105)
[2022-03-20 17:33] LABS: Hemoglobin A1C 13.3 % (<5.7)
[2022-03-20 17:43] LABS: Anion Gap 19 mmol/L (8-16); Blood Urea Nitrogen 35 mg/dL (7-17); Carbon Dioxide 18 mmol/L (22-30); Chloride 97 mmol/L (98-107); Estimated Glomerular Filt Rate 48; Glucose 289 mg/dL (65-110); Sodium 134 mmol/L (137-145)
--- NOTE | 2022-03-20 17:50 | PC.NURSE ---
This patient, Carmelina Valencia, was admitted to Intensive Care Unit-3. Patient/family oriented to hospital policies and general routines including ID bracelet, bed and alarms, visiting hours, pain management, procedures, bathroom and other care routines, personal items, smoking policy, room service/diet, and visiting hours. Information on how to activate the Rapid Response Team has been discussed. Patient/Family are encouraged to report perceived risks to care and to ask questions if they do not understand what they are told or what they should do.
[2022-03-20 17:58] LABS: Calcium 8.5 mg/dL (8.4-10.2); Magnesium 1.7 mg/dL (1.6-2.3); Phosphorus 2.7 mg/dL (2.5-4.5); Potassium 4.7 mmol/L (3.4-5.0)
[2022-03-20 18:52] LABS: Glucose Point of Care 237 mg/dl (65-105)
[2022-03-20 18:55] LABS: Anion Gap 14 mmol/L (8-16); Blood Urea Nitrogen 34 mg/dL (7-17); Calcium 8.4 mg/dL (8.4-10.2); Carbon Dioxide 23 mmol/L (22-30); Chloride 99 mmol/L (98-107); Estimated CRCL calculation 21 ml/min; Estimated Glomerular Filt Rate 44; Glucose 187 mg/dL (65-110); Potassium 3.8 mmol/L (3.4-5.0); Sodium 136 mmol/L (137-145)
[2022-03-20 19:10] LABS: Glucose Point of Care 129 mg/dl (65-105)
[2022-03-20] MEDS: KCL 20 MEQ/D5/0.45% SOD CHL 1,000 ML 150 ML IV CONT (19:40)
--- NOTE | 2022-03-20 19:54 | PM.IMHP ---
H&P: HPI History of Present Illness Date/Time: 03/20/22 19:54 Chief Complaint: hyperglycemia Narrative: Patient is an 81-year-old female with a history of hypertension, diabetes, CKD, CHF, hyperlipidemia presenting with elevated blood glucose.? Patient states over the last several weeks she has been feeling generally weak and shaky.? States that she has had a decreased appetite but states she has been thirstier than normal.? States she has been drinking a lot of water.? Patient states that she had a sore throat last week and checked herself for COVID which was negative.? Today, the patient checked her blood sugar and it was 495 which is the highest its ever been.? She denies headache, fevers, cough, chest pain, shortness of breath, abdominal pain, nausea or vomiting, diarrhea, dysuria, leg swelling. Review of Systems Review of Systems: - CONSTITUTIONAL: Denies weight loss, fever and chills. - HEENT: Denies changes in vision and hearing - RESPIRATORY: Denies SOB and cough. - CV: Denies palpitations and CP. - GI: Denies abdominal pain, nausea, vomiting and diarrhea. - : Denies dysuria and urinary frequency. - MSK: Denies myalgia and joint pain. - SKIN: Denies rash and pruritus. - NEUROLOGICAL: Denies headache and syncope. - PSYCHIATRIC: Denies recent changes in mood. Denies anxiety and depression. [facility] Past Medical History Medical History (Updated 12/11/21 @ 12:23 by Sujit Palomo MD) Aortic stenosis Echo in June 2020 showed mild to moderate aortic stenosis with a valve area of 1.19 cm?. Chronic bilateral low back pain Chronic kidney disease, stage 3 Creatinine ranges between 1.1 and 1.20 Congestive heart failure Diabetic retinopathy Essential (primary) hypertension Mixed hyperlipidemia Type 2 diabetes mellitus Surgical History Surgical History History of arthroscopy of right knee History of hysterectomy Family History Family History Father Cerebrovascular accident Family history of diabetes mellitus in first degree relative Family history of coronary artery disease Mother Family history of coronary artery disease Social History Social History Social History: Surrogate decision-maker: Jay Valencia, spouse. CODE STATUS: Full code. Smoking status: Never smoker Alcohol intake: never Substance use: never Substance use type: does not use Additional living arrangements comments: Patient lives in [place] with her . 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 Spiritual care concerns: No Meds Home Medications and Allergies Home Medications Medication Instructions Recorded Confirmed Type nebivolol 20 mg tablet (Bystolic) 20 mg PO DAILY #90 tabs 07/01/21 03/20/22 Rx metformin 1,000 mg tablet 1,000 mg PO DAILY #90 tabs 07/22/21 03/20/22 Rx isosorbide mononitrate 60 mg 30 mg PO DAILY 12/11/21 03/20/22 History tablet,extended release 24 hr diclofenac sodium 75 mg 75 mg PO DAILY #90 tabs 12/31/21 03/20/22 Rx tablet,delayed release verapamil 240 mg 24 hr 240 mg PO DAILY #90 caps 01/17/22 03/20/22 Rx capsule,extended release Allergies Allergy/AdvReac Type Severity Reaction Status Date / Time RADHA Inhibitors Allergy Unknown Unknown Verified 03/20/22 12:10 naproxen Allergy Unknown Unknown Verified 03/20/22 12:10 Vital Signs Vital Signs - 24 hr 03/20/22 12:07 03/20/22 12:40 03/20/22 13:49 Temperature 97.4 F L Pulse Rate 75 72 69 Respiratory Rate 16 20 18 Blood Pressure 174/83 H 150/77 H Pulse Oximetry 100 100 100 Oxygen Delivery Room Air 03/20/22 12:48 03/20/22 13:16 03/20/22 13:46 Temperature Pulse Rate 73 71 72 Respiratory Rate 17 14 15 Blood Pressure 152/78 H 128/69 150/77 H Pulse Oximetry 100 98 100 Oxygen Delivery 03/20
[2022-03-20 20:16] LABS: Glucose Point of Care 100 mg/dl (65-105)
--- NOTE | 2022-03-20 21:30 | ECG_ITS ---
Measurements Intervals [place] Rate: 61 P: 35 NH: 170 QRS: 24 QRSD: 80 T: 39 QT: 412 QTc: 416 Interpretive Statements SINUS RHYTHM VOLTAGE CRITERIA FOR LVH BASELINE ARTIFACT- V4-V5 BORDERLINE ECG COMPARED TO ECG 03/15/2021 13:42:35 NO SIGNIFICANT CHANGES Electronically Signed On 03-21-2022 6:33:29 CDT by Papo Roper D.O.
[2022-03-20 21:31] LABS: Glucose Point of Care 105 mg/dl (65-105)
[2022-03-20 22:12] LABS: Glucose Point of Care 112 mg/dl (65-105)
[2022-03-20 22:12] LABS: Anion Gap 8 mmol/L (8-16); Blood Urea Nitrogen 33 mg/dL (7-17); Calcium 8.5 mg/dL (8.4-10.2); Carbon Dioxide 27 mmol/L (22-30); Chloride 100 mmol/L (98-107); Estimated CRCL calculation 22 ml/min; Estimated Glomerular Filt Rate 48; Glucose 100 mg/dL (65-110); Potassium 4.9 mmol/L (3.4-5.0); Sodium 135 mmol/L (137-145)
[2022-03-20] MEDS: INSULIN GLARGINE (*BKC) 100 UNITS/ML 12 UNITS SUB-Q (22:51)
[2022-03-21] VITALS (29 sets, daily range): BP systolic 121–167; BP diastolic 58–91; PULSE 58–85; RESP 9–22; TEMP 36.1–37.3; O2SAT 96–100; BMI 21.7
[2022-03-21 00:28] LABS: Glucose Point of Care 127 mg/dl (65-105)
[2022-03-21 00:28] LABS: Glucose Point of Care 124 mg/dl (65-105)
[2022-03-21 01:00] LABS: Glucose Point of Care 245 mg/dl (65-105)
[2022-03-21 05:05] LABS: Anion Gap 14 mmol/L (8-16); Blood Urea Nitrogen 27 mg/dL (7-17); Calcium 8.1 mg/dL (8.4-10.2); Carbon Dioxide 23 mmol/L (22-30); Chloride 99 mmol/L (98-107); Estimated CRCL calculation 22 ml/min; Estimated Glomerular Filt Rate 48; Glucose 337 mg/dL (65-110); Magnesium 1.6 mg/dL (1.6-2.3); Phosphorus 2.7 mg/dL (2.5-4.5); Potassium 3.9 mmol/L (3.4-5.0); Sodium 136 mmol/L (137-145)
[2022-03-21 06:29] LABS: Hematocrit 34.3 % (37.0-47.0); Hemoglobin 11.1 g/dL (12.0-15.0); Mean Corpuscular HGB Conc 32.4 g/dl (32-36); Mean Corpuscular Hemoglobin 28.7 pg (26-34); Mean Corpuscular Volume 88.6 fl (80-100); Mean Platelet Volume 9.8 fl (7.4-10.4); Platelet Count Result 261 k/mm3 (150-375); Red Blood Count 3.87 M/mm3 (4.2-5.4); Red Cell Distribution Width 13.2 % (11.5-14.5); White Blood Count 5.3 K/mm3 (4.5-10.0)
[2022-03-21 06:37] LABS: Glucose Point of Care 327 mg/dl (65-105)
[2022-03-21 08:08] LABS: Glucose Point of Care 310 mg/dl (65-105)
--- NOTE | 2022-03-21 08:41 | WPDCNINT ---
Assessment and Plan Assessment and plan (1) DKA (diabetic ketoacidosis): Code(s): E11.10 - Type 2 diabetes mellitus with ketoacidosis without coma Status: Acute Assessment and Plan: Patient presented with repeat blood sugar, elevated anion gap and positive beta hydroxybutyrate Patient was given IVF bolus and started on infusion Patient was also treated with Insulin infusion and Q1H glucose monitoring Serial labs were done Now high anion gap has been closed and she has been transition to subcutaneous insulin Monitor blood sugars and adjust insulin accordingly Resume metformin (2) UTI (urinary tract infection): Code(s): N39.0 - Urinary tract infection, site not specified Status: Acute Assessment and Plan: UA suggests UTI although patient denies any symptoms Patient is on IV Rocephin Urine culture has been sent and pending (3) Chronic kidney disease, stage 3: Code(s): N18.30 - Chronic kidney disease, stage 3 unspecified Status: Acute Assessment and Plan: Creatinine appears to be at baseline with IV fluid Electrolytes acceptable Monitor Plan DVT prophylaxis -patient is ambulating Nutrition -advanced diabetic diet Code Status - Full Code Transfer out of ICU today. Defer rest of the management to hospitalist physician Lime Sludge Kiln Operator Consult Note Consult date: 03/21/22 Reason for consult: DKA HPI: Carmelina Valencia is a 81 year old female with past medical history of hypertension, diabetes, CKD, CHF, hyperlipidemia presenting to ER yesterday with elevated blood glucose.? Patient stated ER that over last few weeks she has been feeling weak with poor appetite and tired. She had excessive thirst drinking lot of water. She also had episode of sore throat last week and checked herself for COVID which was negative.? Today, the patient checked her blood sugar and it was 495 which is the highest she has ever seen. Is the reason she came to ER. She denies headache, fevers, cough, chest pain, shortness of breath, abdominal pain, nausea or vomiting, diarrhea, dysuria, leg swelling. All other systems were reviewed and were negative In ED patient was found to be have DKA. She was given IV fluid bolus, started on IV insulin and admitted to ICU. She was also start Rocephin for UTI Review of Systems Review of Systems: All systems reviewed & are unremarkable except as noted in HPI and below (HPI) [facility] Past Medical History Medical History Aortic stenosis Echo in June 2020 showed mild to moderate aortic stenosis with a valve area of 1.19 cm?. Chronic bilateral low back pain Chronic kidney disease, stage 3 Creatinine ranges between 1.1 and 1.20 Congestive heart failure Diabetic retinopathy Essential (primary) hypertension Mixed hyperlipidemia Type 2 diabetes mellitus Surgical History Surgical History History of arthroscopy of right knee History of hysterectomy Family History Family History Father Cerebrovascular accident Family history of diabetes mellitus in first degree relative Family history of coronary artery disease Mother Family history of coronary artery disease Social History Social History Social History: Surrogate decision-maker: Jay Valencia, spouse. CODE STATUS: Full code. Smoking status: Never smoker Alcohol intake: never Substance use: never Substance use type: does not use Additional living arrangements comments: Patient lives in [place] with her . 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 Spiritual care concerns: No Meds Home Medications and Allergies Home Medications Medication Instructions Recorded Confirmed Type nebivolol 20 mg tablet (Bystolic) 20 mg PO DAILY #90 tabs 07/01/21
[2022-03-21] MEDS: INSULIN ASPART (*BKC) 100 UNITS/ML SUB-Q ×6 (08:50→16:48)
[2022-03-21] MEDS: VERAPAMIL HCL ER 240 MG TABLET.ER PO (08:52)
[2022-03-21] MEDS: NEBIVOLOL HCL 5 MG TABLET 20 MG PO (08:52)
[2022-03-21] MEDS: DICLOFENAC SOD 75 MG TABLET.EC PO (08:53)
[2022-03-21] MEDS: ISOSORBIDE MONONITRATE 30 MG TAB.ER.24H PO (08:53)
[2022-03-21 12:02] LABS: Glucose Point of Care 217 mg/dl (65-105)
[2022-03-21] MEDS: ACETAMINOPHEN 325 MG TABLET 650 MG PO (16:06)
[2022-03-21 16:56] LABS: Glucose Point of Care 259 mg/dl (65-105)
--- NOTE | 2022-03-21 18:15 | PC.NURSE ---
This patient, Carmelina Valencia, was transferred to [facility] on 03/21/22 at 1814. Personal belongings sent with patient. Report given to Hawa BLACKBURN. Appropriate documentation sent with patient. Patient to inform family of new room number.
--- NOTE | 2022-03-21 18:33 | PC.NURSE ---
This patient, Carmelina Valencia, was received from ICU on 03/21/22 at 1820. Report received from BERE Peralta. Patient/family oriented to unit policies and routines
[2022-03-21] MEDS: polyethylene glycoL 3350 17 GM POWD.PACK PO (20:39)
[2022-03-21] MEDS: INSULIN GLARGINE (*BKC) 100 UNITS/ML 12 UNITS SUB-Q (20:50)
[2022-03-21 22:42] LABS: Glucose Point of Care 281 mg/dl (65-105)
[2022-03-22 06:51] VITALS: BP 154/76; PULSE 59; RESP 18; TEMP 35.7; O2SAT 100
[2022-03-22 08:09] LABS: Glucose Point of Care 138 mg/dl (65-105)
[2022-03-22] MEDS: VERAPAMIL HCL ER 240 MG TABLET.ER PO (08:21)
[2022-03-22] MEDS: polyethylene glycoL 3350 17 GM POWD.PACK PO (08:21)
[2022-03-22 08:22] VITALS: PULSE 66
[2022-03-22] MEDS: DICLOFENAC SOD 75 MG TABLET.EC PO (08:22)
[2022-03-22] MEDS: ISOSORBIDE MONONITRATE 30 MG TAB.ER.24H PO (08:22)
[2022-03-22] MEDS: NEBIVOLOL HCL 5 MG TABLET 20 MG PO (08:22)
[2022-03-22] MEDS: INSULIN ASPART (*BKC) 100 UNITS/ML SUB-Q ×3 (08:26→11:53)
--- NOTE | 2022-03-22 11:26 | PM.DS ---
DS: Admitting Diagnosis Discharge Date 03/22/2022 Admitting Diagnosis DKA DS: Discharge Diagnosis Discharge Diagnosis (1) DKA (diabetic ketoacidosis): Code(s): E11.10 - Type 2 diabetes mellitus with ketoacidosis without coma Status: Acute (2) UTI (urinary tract infection): Code(s): N39.0 - Urinary tract infection, site not specified Status: Acute (3) Chronic kidney disease, stage 3: Code(s): N18.30 - Chronic kidney disease, stage 3 unspecified Status: Acute DS: Summary Hospital Course Hospital Course: #? ? acute DKA with elevated anion gap and elevated beta hydroxybutyrate at 8.4.? Received IV fluid resuscitation with 10 units of insulin. ? admitted to the ICU insulin drip.? Continue DKA protocol.? Recheck A1c at 13.3. gap closed and transition to Lantus NovoLog. Insulin regimen adjusted depending on the blood sugar trend. She will go home on Lantus and NovoLog. Advised to follow-up with PCP as well as laundry housekeeping aide for further management. Lo is going to check her blood sugar at home regularly make a log. # hypertension: uncontrolled on admission continue home medication Resumed and improved with this home regimen # UTI possible however contaminated sample. She denies any Urinary complaints. she was empirically started on IV ceftriaxone. Urine culture showed contaminated sample will discontinue antibiotics at discharge # hyponatremia mild likely due to hyperglycemia # type 2 diabetes on the on metformin at home prior to this.? Slowly worsening A1c in the past # hyperlipidemia #chronic low back pain # generalized anxiety disorder # hyperlipidemia # congestive heart failure ?# aortic stenosis # CKD stage 3 # DVT prophylaxis Lovenox # code status full code Time Spent with Patient Time attestation: Total time spent providing and/or coordinating discharge services: 45 minutes Exam Narrative: General: Pt is alert awake and in NAD Lungs/Chest: Trachea central Clear BS B/L, No crackles or wheezing. Cardiac: RRR. Normal S1 S2. No murmurs Circulation: Pedal pulses are intact and symmetrical. Abdomen: Normal bowel sounds.. Soft. NT. ND. Extremities: No clubbing, cyanosis or edema. Warm : Marie in place Neurologic: Follows commands. Moves all 4 extremities PERRL AO x3 Skin: No Rash DS: Data Data Completed and Pending Labs on day of discharge: Labs from last 24 hours 03/22/22 03/21/22 03/21/22 08:04 20:46 16:47 POC Capillary Glucose 138 H 281 H 259 H 03/21/22 11:48 POC Capillary Glucose 217 H Imaging Radiologist's impression: ITS Impressions Chest X-Ray 03/20/22 13:36 Impression: 1: No acute cardiopulmonary disease. Discharge Plan Discharge Attending physician on discharge: Elver Xie Consulting providers: Kyler Jones Discharging Clinician: Elver Xie Anticipated Discharge Date/Time: 03/22/22 11:21 Patient Disposition: Home, Self-Care Activity: as tolerated Diet: heart healthy and diabetic Discharge Instructions: check blood sugars before meals and at bedtime. make a log. avoid hypoglycemia < 70 and be aware fo the symtopms of low blood sugar Patient Instructions: Antibiotic Form, Heart Failure (GEN), Basic Carbohydrate Counting (DC) Stand Alone Forms: General Discharge Information Follow-up/Referrals: Sujit Palomo MD [Primary Care Provider] - 1 Week Dulce Benavidez MD [Physician] - 1 Week Discharge Medications: New (DME) blood-glucose meter Kit See Rx Instructions .Route Qty: 1 0RF Rx Instructions: As directed insulin aspart U-100 [Novolog Flexpen U-100 Insulin] 100 unit/mL (3 mL) insulin pen 4 unit subcut TID Qty: 15 0RF insulin glargine [Lantus Solostar U-100 Insulin] 100 unit/mL (3 mL) insulin pen 12 unit subcut QPM Qty: 15 0RF Continued isosorbide mononitrate 60 mg tablet extended release 24 hr 30 mg PO DAILY Bystolic 20 mg tablet
[2022-03-22 11:37] LABS: Glucose Point of Care 206 mg/dl (65-105)
--- NOTE | 2022-03-25 07:54 | PC.NURSE ---
Initial DSMT and MNT started for patient. [facility]
== END 2022-03-22 13:05 | disposition home or self-care (01) ==
LOC: ANHED 12:53 → ANHICU 18:55 → ANH3MEDSUR 03-21 18:30
PROVIDERS: Internal Medicine; Admitting Provider Family Medicine; Emergency Provider Emergency Medicine; PCP Family Medicine; Visit Provider Internal Medicine
DX: E11.10 Type 2 diabetes mellitus with ketoacidosis without coma (principal); N39.0 Urinary tract infection, site not specified; I13.0 Hypertensive heart and chronic kidney disease with heart failure and stage 1 through stage 4 chronic kidney disease, or unspecified chronic kidney disease; I50.9 Heart failure, unspecified; N18.30 Chronic kidney disease, stage 3 unspecified; E11.319 Type 2 diabetes mellitus with unspecified diabetic retinopathy without macular edema; I35.0 Nonrheumatic aortic (valve) stenosis; E78.2 Mixed hyperlipidemia; F41.1 Generalized anxiety disorder; Z79.84 Long term (current) use of oral hypoglycemic drugs; M54.9 Dorsalgia, unspecified; G89.29 Other chronic pain; Z20.822 Contact with and (suspected) exposure to COVID-19; Z23 Encounter for immunization
CPT/HCPCS: 36415; 36600; 71045; 80048; 80053; 81001; 82010; 82375; 82805; 82948; 83036; 83050; 83735; 84100; 85025; 85027; 87086; 87088; 90471; 90686; 93005; 96361; 96365; 96366; 96367; 96368; 96376; 99285; A9270; C9803; G0008; G0378; J0696; J1815; J3480; J7030; U0003; U0005

== ENCOUNTER 2022-04-10 09:07 | Outpatient (CLI) | payer MEDICARE, SELFPAY ==
[2022-04-10 09:43] LABS: Alanine Aminotransferase 19 U/L (6-35); Albumin Level 3.9 g/dL (3.5-5.1); Alkaline Phosphatase 66 U/L (38-126); Anion Gap 9 mmol/L (8-16); Aspartate Amino Transferase 24 U/L (14-36); Bilirubin,Total 0.2 mg/dL (0.2-1.3); Blood Urea Nitrogen 36 mg/dL (7-17); Carbon Dioxide 28 mmol/L (22-30); Chloride 96 mmol/L (98-107); Estimated Glomerular Filt Rate 48; Glucose 229 mg/dL (65-110); Potassium 4.5 mmol/L (3.4-5.0); Sodium 133 mmol/L (137-145)
[2022-04-10 10:04] LABS: Hemoglobin A1C 12.2 % (<5.7)
== END 2022-04-10 09:08 | disposition home or self-care (01) ==
LOC: ANHLAB 09:08
PROVIDERS: PCP Family Medicine; Visit Provider Family Medicine
DX: E11.9 Type 2 diabetes mellitus without complications (principal); R79.89 Other specified abnormal findings of blood chemistry
CPT/HCPCS: 36415; 80053; 83036; 84443

== ENCOUNTER 2022-08-14 09:52 | Outpatient (CLI) | payer MEDICARE, SELFPAY ==
[2022-08-14 10:26] LABS: Hematocrit 33.6 % (37.0-47.0); Hemoglobin 10.6 g/dL (12.0-15.0); Mean Corpuscular HGB Conc 31.5 g/dl (32-36); Mean Corpuscular Volume 85.5 fl (80-100); Mean Platelet Volume 9.2 fl (7.4-10.4); Platelet Count Result 336 k/mm3 (150-375); Red Blood Count 3.93 M/mm3 (4.2-5.4); Red Cell Distribution Width 13.6 % (11.5-14.5); White Blood Count 3.5 K/mm3 (4.5-10.0)
[2022-08-14 10:31] LABS: Appearance Urine Clear (Clear); Bilirubin Urine Negative (Negative); Blood Urine Negative (Negative); Color Urine Yellow (Yellow); Glucose Urine UA Negative (Negative); Ketones Urine Negative (Negative); Leukocyte Esterase Ur 2+ LEU/UL (NEGATIVE); Nitrate Urine Negative (Negative); Protein Urine 2+ mg/dL (Negative); Urobilinogen Urine 0.2 mg/dL (<2.0)
[2022-08-14 10:37] LABS: Alanine Aminotransferase 17 U/L (6-35); Albumin Level 4.4 g/dL (3.5-5.1); Alkaline Phosphatase 98 U/L (38-126); Anion Gap 5 mmol/L (8-16); Aspartate Amino Transferase 24 U/L (14-36); Bilirubin,Total 0.4 mg/dL (0.2-1.3); Blood Urea Nitrogen 25 mg/dL (7-17); Calcium 8.9 mg/dL (8.4-10.2); Carbon Dioxide 31 mmol/L (22-30); Chloride 96 mmol/L (98-107); Cholesterol 277 mg/dL (0-200); Estimated Glomerular Filt Rate 48; Glucose 149 mg/dL (65-110); HDL Direct 74 mg/dL; Potassium 3.9 mmol/L (3.4-5.0); Sodium 132 mmol/L (137-145); Triglycerides 63 mg/dL (<150)
[2022-08-14 10:38] LABS: Bacteria Urine Trace /hpf; Squamous Epithelial Cell Urine Rare /hpf (Few); Transitional Epi Cells Urine Rare /hpf (None Seen); WBC Urine 31-50 /hpf (0-3)
[2022-08-14 10:42] LABS: Hemoglobin A1C 7.3 % (<5.7)
[2022-08-14 10:48] LABS: LDL Cholesterol Direct 133 mg/dL
[2022-08-14 11:01] LABS: Creatinine Urine 67.5 mg/dL
[2022-08-14 11:02] LABS: Add Urine Microscopic? YES
[2022-08-14 11:08] LABS: Thyroid Stimulating Hormone 0.074 uIU/mL (0.465-4.680)
[2022-08-14 11:21] LABS: MALB Creatinine Ratio 464.4 mg/g (0-30); Microalbumin Urine Random 313.5 mg/L (0-16.7)
== END 2022-08-14 09:53 | disposition home or self-care (01) ==
PROVIDERS: PCP Family Medicine; Visit Provider Family Medicine
DX: I50.9 Heart failure, unspecified (principal); E11.9 Type 2 diabetes mellitus without complications; E78.2 Mixed hyperlipidemia; I12.9 Hypertensive chronic kidney disease with stage 1 through stage 4 chronic kidney disease, or unspecified chronic kidney disease; N18.30 Chronic kidney disease, stage 3 unspecified
CPT/HCPCS: 36415; 80053; 80061; 81001; 82043; 83036; 84443; 85027

== ENCOUNTER 2022-10-06 10:09 | Outpatient (CLI) | payer MEDICARE, SELFPAY ==
[2022-10-06 10:44] LABS: Anion Gap 5 mmol/L (8-16); Blood Urea Nitrogen 34 mg/dL (7-17); Calcium 9.2 mg/dL (8.4-10.2); Carbon Dioxide 30 mmol/L (22-30); Chloride 100 mmol/L (98-107); Estimated Glomerular Filt Rate 40; Glucose 94 mg/dL (65-110); Potassium 3.8 mmol/L (3.4-5.0); Sodium 135 mmol/L (137-145)
== END 2022-10-06 10:10 | disposition home or self-care (01) ==
PROVIDERS: PCP Family Medicine; Visit Provider Family Medicine
DX: I10 Essential (primary) hypertension (principal)
CPT/HCPCS: 36415; 80048

== ENCOUNTER 2022-11-04 15:35 | Outpatient (CLI) | payer MEDICARE, SELFPAY ==
--- NOTE | ~2022-11-04 | MM_ITS ---
EXAMINATION: MM screening [facility] BI w ed HISTORY: Screening mammogram TECHNIQUE: Craniocaudal and mediolateral oblique 3-D tomosynthesis images were obtained and synthetic 2-D images were generated. CAD analysis was submitted and interpreted. COMPARISON: 08/29/2021, 12/15/2017, 10/21/2016 BREAST PARENCHYMAL COMPOSITION:The breasts are extremely dense, which lowers the sensitivity of mammo graphy. FINDINGS: No suspicious mass, calcification, or architectural distortion are identified in either ben ast to suggest malignancy. There has been no suspicious interval change. IMPRESSION: No mammographic evidence of malignancy. Recommend routine screening mammography in one year. BI-RADS Category 1: Negative Reviewed, dictated and finalized at location .
== END 2022-11-04 15:36 | disposition home or self-care (01) ==
LOC: ANHIMG 15:36
PROVIDERS: PCP Family Medicine; Visit Provider Family Medicine
DX: Z12.31 Encounter for screening mammogram for malignant neoplasm of breast (principal)
CPT/HCPCS: 77063; 77067

== ENCOUNTER 2022-12-20 08:38 | Outpatient (CLI) | payer MEDICARE, SELFPAY ==
[2022-12-20 09:27] LABS: Alanine Aminotransferase 17 U/L (6-35); Alkaline Phosphatase 70 U/L (38-126); Anion Gap 3 mmol/L (8-16); Aspartate Amino Transferase 25 U/L (14-36); Bilirubin,Total 0.4 mg/dL (0.2-1.3); Blood Urea Nitrogen 26 mg/dL (7-17); Calcium 8.6 mg/dL (8.4-10.2); Carbon Dioxide 32 mmol/L (22-30); Chloride 94 mmol/L (98-107); Estimated Glomerular Filt Rate 52; Glucose 100 mg/dL (65-110); Potassium 3.8 mmol/L (3.4-5.0); Sodium 129 mmol/L (137-145)
[2022-12-20 09:48] LABS: Thyroid Stimulating Hormone 0.742 uIU/mL (0.465-4.680)
== END 2022-12-20 08:39 | disposition home or self-care (01) ==
LOC: ANHLAB 08:39
PROVIDERS: PCP Family Medicine; Visit Provider Family Medicine
DX: I10 Essential (primary) hypertension (principal); E05.90 Thyrotoxicosis, unspecified without thyrotoxic crisis or storm
CPT/HCPCS: 36415; 80053; 84443

== ENCOUNTER 2022-12-24 11:25 | Outpatient (CLI) | payer MEDICARE, SELFPAY ==
[2022-12-24 12:55] LABS: Hemoglobin A1C 6.9 % (<5.7)
== END 2022-12-24 11:26 | disposition home or self-care (01) ==
LOC: ANHLAB 11:26
PROVIDERS: PCP Family Medicine; Visit Provider Family Medicine
DX: E11.319 Type 2 diabetes mellitus with unspecified diabetic retinopathy without macular edema (principal)
CPT/HCPCS: 36415; 83036

== ENCOUNTER 2023-02-18 09:47 | Outpatient (CLI) | payer MEDICARE, SELFPAY ==
[2023-02-18 10:51] LABS: SARS-CoV-2 RNA PCR Positive (Negative)
== END 2023-02-18 09:48 | disposition home or self-care (01) ==
LOC: ANHLAB 09:49
PROVIDERS: PCP Family Medicine; Visit Provider Physician Assistant
DX: R05.9 Cough, unspecified (principal); R50.9 Fever, unspecified; U07.1 COVID-19
CPT/HCPCS: 87635

== ENCOUNTER 2023-04-25 09:30 | Outpatient (CLI) | payer MEDICARE, SELFPAY ==
[2023-04-25 10:24] LABS: Alanine Aminotransferase 15 U/L (6-35); Albumin Level 4.1 g/dL (3.5-5.1); Alkaline Phosphatase 82 U/L (38-126); Anion Gap 3 mmol/L (8-16); Aspartate Amino Transferase 25 U/L (14-36); Bilirubin,Total 0.5 mg/dL (0.2-1.3); Blood Urea Nitrogen 30 mg/dL (7-17); Calcium 8.9 mg/dL (8.4-10.2); Carbon Dioxide 33 mmol/L (22-30); Chloride 97 mmol/L (98-107); Estimated Glomerular Filt Rate 40; Glucose 91 mg/dL (65-110); Potassium 4.2 mmol/L (3.4-5.0); Sodium 133 mmol/L (137-145)
[2023-04-25 10:35] LABS: Hemoglobin A1C 7.1 % (<5.7)
== END 2023-04-25 09:31 | disposition home or self-care (01) ==
PROVIDERS: PCP Family Medicine; Visit Provider Family Medicine
DX: E11.319 Type 2 diabetes mellitus with unspecified diabetic retinopathy without macular edema (principal)
CPT/HCPCS: 36415; 80053; 83036

== ENCOUNTER 2023-10-02 13:49 | Outpatient (CLI) | payer MEDICARE, SELFPAY ==
[2023-10-02 14:49] LABS: Hematocrit 32.8 % (37.0-47.0); Hemoglobin 10.2 g/dL (12.0-15.0); Mean Corpuscular HGB Conc 31.1 g/dl (32-36); Mean Corpuscular Hemoglobin 27.4 pg (26-34); Mean Corpuscular Volume 88.2 fl (80-100); Mean Platelet Volume 9.9 fl (7.4-10.4); Platelet Count Result 309 k/mm3 (150-375); Red Blood Count 3.72 M/mm3 (4.2-5.4); White Blood Count 4.5 K/mm3 (4.5-10.0)
[2023-10-02 14:58] LABS: Hemoglobin A1C 9.4 % (<5.7)
[2023-10-02 15:03] LABS: Alanine Aminotransferase 12 U/L (6-35); Albumin Level 4.1 g/dL (3.5-5.1); Alkaline Phosphatase 87 U/L (38-126); Anion Gap 4 mmol/L (4-12); Aspartate Amino Transferase 21 U/L (14-36); Bilirubin,Total 0.4 mg/dL (0.2-1.3); Blood Urea Nitrogen 28 mg/dL (7-17); Calcium 9.2 mg/dL (8.4-10.2); Carbon Dioxide 30 mmol/L (22-30); Chloride 96 mmol/L (98-107); Cholesterol 251 mg/dL (0-200); Estimated Glomerular Filt Rate 52; Glucose 119 mg/dL (65-110); HDL Direct 67 mg/dL; Potassium 3.8 mmol/L (3.4-5.0); Sodium 130 mmol/L (137-145); Triglycerides 72 mg/dL (<150)
[2023-10-02 15:14] LABS: LDL Cholesterol Direct 141 mg/dL
[2023-10-02 15:18] LABS: Appearance Urine Clear (Clear); Bacteria Urine None Seen /hpf; Bilirubin Urine Negative (Negative); Blood Urine Negative (Negative); Color Urine Yellow (Yellow); Glucose Urine UA Negative (Negative); Ketones Urine Negative (Negative); Leukocyte Esterase Ur 2+ LEU/UL (Negative); Need Manual Microscopic Reviewed; Nitrate Urine Negative (Negative); Non Pathogenic Casts 0-2; Protein Urine Negative (Negative); RBC Urine 0-2 /hpf (0-2); Specific Grav Ur 1.007 (1.001-1.035); Squamous Epithelial Cell Urine None Seen /hpf (Few); Urobilinogen Urine 0.2 mg/dL (<2.0); WBC Urine 0-5 /hpf (0-3)
[2023-10-02 15:25] LABS: Add Urine Microscopic? YES
[2023-10-02 15:33] LABS: Thyroid Stimulating Hormone 0.962 uIU/mL (0.465-4.680)
[2023-10-02 15:55] LABS: Creatinine Urine 22.9 mg/dL
[2023-10-02 15:59] LABS: MALB Creatinine Ratio 223.1 mg/g (0-30); Microalbumin Urine Random 51.1 mg/L (0-16.7)
== END 2023-10-02 13:50 | disposition home or self-care (01) ==
PROVIDERS: PCP Family Medicine; Visit Provider Family Medicine
DX: E11.319 Type 2 diabetes mellitus with unspecified diabetic retinopathy without macular edema (principal); E78.2 Mixed hyperlipidemia; R53.83 Other fatigue; I12.9 Hypertensive chronic kidney disease with stage 1 through stage 4 chronic kidney disease, or unspecified chronic kidney disease; N18.9 Chronic kidney disease, unspecified
CPT/HCPCS: 36415; 80053; 80061; 81001; 82043; 83036; 84443; 85027

== ENCOUNTER 2024-01-05 08:04 | Outpatient (CLI) | payer MEDICARE, SELFPAY ==
[2024-01-05 09:23] LABS: Alanine Aminotransferase 15 U/L (6-35); Albumin Level 4.1 g/dL (3.5-5.1); Alkaline Phosphatase 73 U/L (38-126); Anion Gap 10 mmol/L (4-12); Aspartate Amino Transferase 24 U/L (14-36); Bilirubin,Total 0.4 mg/dL (0.2-1.3); Blood Urea Nitrogen 28 mg/dL (7-17); Carbon Dioxide 29 mmol/L (22-30); Chloride 99 mmol/L (98-107); Estimated Glomerular Filt Rate 52; Glucose 90 mg/dL (65-110); Potassium 3.7 mmol/L (3.4-5.0); Sodium 138 mmol/L (137-145)
[2024-01-06 13:58] LABS: Hemoglobin A1C 7.8 % (<5.7)
== END 2024-01-05 08:05 | disposition home or self-care (01) ==
LOC: ANHLAB 08:06
PROVIDERS: PCP Family Medicine; Visit Provider Family Medicine
DX: E11.9 Type 2 diabetes mellitus without complications (principal)
CPT/HCPCS: 36415; 80053; 83036

== ENCOUNTER 2024-05-04 08:00 | Outpatient (CLI) | payer MEDICARE, SELFPAY ==
[2024-05-04 09:17] LABS: Alanine Aminotransferase 14 U/L (6-35); Albumin Level 4.1 g/dL (3.5-5.1); Alkaline Phosphatase 81 U/L (38-126); Anion Gap 9 mmol/L (4-12); Aspartate Amino Transferase 23 U/L (14-36); Bilirubin,Total 0.4 mg/dL (0.2-1.3); Blood Urea Nitrogen 31 mg/dL (7-17); Calcium 9.1 mg/dL (8.4-10.2); Carbon Dioxide 28 mmol/L (22-30); Chloride 96 mmol/L (98-107); Estimated Glomerular Filt Rate 44; Glucose 95 mg/dL (65-110); Potassium 3.7 mmol/L (3.4-5.0); Sodium 133 mmol/L (137-145)
[2024-05-04 09:41] LABS: Hemoglobin A1C 8.1 % (<5.7)
== END 2024-05-04 08:01 | disposition home or self-care (01) ==
PROVIDERS: PCP Family Medicine; Visit Provider Physician Assistant
DX: E11.9 Type 2 diabetes mellitus without complications (principal); I12.9 Hypertensive chronic kidney disease with stage 1 through stage 4 chronic kidney disease, or unspecified chronic kidney disease; N18.30 Chronic kidney disease, stage 3 unspecified
CPT/HCPCS: 36415; 80053; 83036

== ENCOUNTER 2024-10-08 10:11 | Outpatient (CLI) | payer MEDICARE, SELFPAY ==
--- OUTSIDE RECORDS SUMMARY | 2024-10-08 10:14 | XMS_ITS | CONTINUITY OF CARE DOCUMENT ---
Author Name ian sosa Address Unknown Organization [facility] Address [id number] [place] [address] [address] [place] [address] Phone [phone] Care Team Providers Care Sports Equipment Repairer Name Role Phone DANY WEIR MD Unavailable [phone] INSURANCE PROVIDERS Payer name Policy type / Coverage type [employer] red alliance party ID [facility] [id number]
--- OUTSIDE RECORDS SUMMARY | 2024-10-08 10:14 | XMS_ITS | Referral Summary ---
Author Organization [facility] [address] Address [address] [place] [address] Care Team Providers Care Hydrogen Power Plant Engineer Name Role Phone Sujit Palomo MD Primary Care Provider Allergies Active Allergy Reactions Criticality Noted Date Comments Naproxen Medications metFORMIN (GLUCOPHAGE) 1,000 mg tablet take 1 tablet by oral route 2 times every day with morning and evening meals 0 0 5 Active chlorthalidone 25 mg tablet take 1 tablet by oral route every day 0 0 5 Active verapamil SR (CALAN SR) 240 mg CR tablet take 1 tablet by oral route every day with food 0 0 5 Active isosorbide mononitrate ER (IMDUR) 60 mg 24 hr tablet take 1 tablet by oral route every day in the morning 0 0 5 Active Additional Information Patient taking differently: 30 mg oral Daily, Reported on 12/17/[address] (VOLTAREN) 75 mg EC tablet take 1 tablet by oral route every day 0 0 6 Active nebivolol (BYSTOLIC) 20 mg tablet TAKE ONE TABLET BY MOUTH ONCE DAILY 30 1 6 Active losartan (COZAAR) 50 mg tablet Take 2 tablets (100 mg total) by mouth daily 4 Active LANTUS 100 unit/mL (3 mL) pen for injection INJECT 12 UNITS UNDER THE SKIN EVERY EVENING 4 Active Active Problems Problem Noted Date Diagnosed Date Dizziness 08/20/2021 Non-rheumatic aortic stenosis 07/16/2020 Palpitations 06/07/2020 Hyperlipidemia associated with type 2 diabetes m ellitus 06/07/2020 Resistant hypertension 06/07/2020 Hypertension associated with diabetes 09/07/2014 Overview (10/04/2016): Hypertension Aortic ejection murmur 09/07/2014 Overview (10/04/2016): Aortic ejection murmur Atypical chest pain 09/07/2014 Overview (10/04/2016): Chest pain Mitral valve prolapse 09/07/2014 Overview (10/04/2016): Mitral valve prolapse Generalized anxiety disorder 09/07/2014 Overview (10/04/2016): Generalized anxiety disorder Diabetes mellitus 09/07/2014 Overview (10/04/2016): Diabetes Hypercholesterolemia 09/07/2014 Overview (10/04/2016): High cholesterol Chronic renal impairment 09/07/2014 Overview (10/04/2016): Chronic renal insufficiency Social History Tobacco Use Types Packs/Day Years Used Date Smoking Tobacco: Never Smokeless Tobacco: Never Tobacco Cessation:Counseling Given: Not Answered Alcohol Use Standard Drinks/Week Comments No 0 (1 standard drink = 0.6 oz pur e alcohol) Comments Unknown Sex and Gender Information Value Date Recorded Sex Assigned at Not on file Legal Sex Female 3:03 AM SALES OPERATIONS CONSULTANT Gender Identity Not on file Sexual Orientation Not on file Last Filed Vital Signs Vital Sign Reading Time Taken Comments Blood Pressure 158/76 04/26/2024 11:28 AM CDT Pulse 68 04/26/2024 11:28 AM CDT Temperature 36.2 C (97.1 F) 07/04/2020 10:58 AM SALES OPERATIONS CONSULTANT Respiratory Rate 16 04/23/2023 11:33 AM CDT Oxygen Saturation 99% 04/26/2024 11:28 AM CDT Inhaled Oxygen Concentration - - Weight 52.2 kg (115 lb) 04/26/2024 11:28 AM CDT Height 152.4 cm (5') 04/26/2024 11:28 AM CDT Body Mass Index 22.46 04/26/2024 11:28 AM CDT Plan of Treatment Not on file Insurance [facility] MEDICARE ADVANTAGE [facility] MEDICARE ADVANTAGE Member Subscriber Plan / Payer (Ef fective 2019-Present) Name:Carmelina Valencia Relation to Subscriber:Self Name:Carmelina Valencia Payer ID:[id number] (NAIC) Type:[facility] MEDICARE Address: [place] [id number] Care Teams Hydrogen Power Plant Engineer Relationship Specialty Start Date End Date Sujit Palomo MD [address] [facility] [address] [place] [address] PCP - General 09/26/16
--- OUTSIDE RECORDS SUMMARY | 2024-10-08 10:14 | XMS_ITS | Clinical Summary ---
Author Organization [facility] [address] Address [address] [place] [address] Care Team Providers Care Bung Dropper Name Role Phone Sujit Palomo MD Primary [...] impairment 09/07/2014 Overview (10/04/2016): Chronic renal insufficiency Surgical History Surgery Date Site/Laterality Comments HYSTERECTOMY KNEE SURGERY CATARACT EXTRACTION Medical History Medical History Date Comments Hx Other Medical HTN, hyperlipid emia, arthritis, CK D., diabetes, h; Comments: MAF 09/07/2014 - Hyperlipidemia Hypertension Diabetes mellitus (HCC) Family History Medical History Relation Name Comments Heart disease Brother 1 1 Pneumonia Brother 1 1 pneumonia; Other Brother 2 2 agent orange; Heart disease Father Stroke Father Stroke; Heart failure Mother Congestive hea rt failure; Hypertension Sister 1 childbirth Sister 2 Relation Name Status Comments Brother 1 1 (Age 62) Brother 2 2 (Age 49) Father (Age 66) Mother (Age 80) Sister 1 (Age 42) Sister 2 (Age 32) Social History Tobacco Use Types Packs/Day Years Used Date Smoking Tobacco: Never Smokeless Tobacco: Never Tobacco Cessation:Counseling Given: Not Answered Alcohol Use Standard Drinks/Week Comments No 0 (1 standard drink = 0.6 oz pur e alcohol) Comments Unknown Sex and Gender Information Value Date Recorded Sex Assigned at Not on file Legal Sex Female 3:03 AM MAIL CARRIERS SUPERVISOR Gender Identity Not on file Sexual Orientation Not on file Obstetrics History Last Filed Vital Signs Vital Sign Reading Time Taken Comments Blood Pressure 158/76 04/26/2024 11:28 AM CDT Pulse 68 04/26/2024 11:28 AM CDT Temperature 36.2 C (97.1 F) 07/04/2020 10:58 AM MAIL CARRIERS SUPERVISOR Respiratory Rate 16 04/23/2023 11:33 AM CDT Oxygen Saturation 99% 04/26/2024 11:28 AM CDT Inhaled Oxygen Concentration - - Weight 52.2 kg (115 lb) 04/26/2024 11:28 AM CDT Height 152.4 cm (5') 04/26/2024 11:28 AM CDT Body Mass Index 22.46 04/26/2024 11:28 AM CDT Plan of Treatment Health Maintenance Due Date Last Done Comments Albumin Creatinine Ratio, Urine 1941 Depression Screening 1941 Fall Risk Assessment 1941 Hemoglobin A1C 1941 Osteoporosis Screening-Bone Density Scan 1941 eGFR 1941 Dilated Eye Exam 1941 Foot Exam 1941 Lipid Panel 1941 DTaP/Tdap/Td Vaccine (1 - Tdap) 1952 Hepatitis B Screening 12/23/1959 Well Visit 65+ 2006 Zoster Vaccine (2 of 2) 07/06/2020 05/11/2020 Influenza Vaccine (#1) 2024 0, 04/26/2019, 04/16/2018, Additional history exists Pneumococcal vaccine 65+ Completed 05/11/2020, 03/30 Insurance [facility] MEDICARE ADVANTAGE [facility] Address: [address] [address] [place] [address] [employer] MEDICARE ADVANTAGE [facility] Address: [facility] [address] [place] [address] Care Teams Bung Dropper Relationship Specialty Start Date End Date Sujit Palomo MD [address] [facility] [address] [place] [address] PCP - General 09/26/16
--- OUTSIDE RECORDS SUMMARY | 2024-10-08 10:14 | XMS_ITS | Continuity of Care Document ---
Author Organization [facility] Address [address] [place] [address] Phone Care Team Providers Care Websphere Administrator Name Role Phone Annette Matthews Unavailable Unavailable Procedures Procedure Date Office/outpatient Visit, Est Dilated Retinal Exam W Interpretation Ri CL Replacement - Vist[facility] Disp W/BW Soft [facility] CL Replacement - Vistakon Disp W/BW Soft [facility] CL Replacement - Vistakon Disp W/BW Soft [facility] No Charge Contact Lens Check Contact Lens Fitting Office Consultation Ophthalmoscopy Ophthalmoscopy Dilated Retinal Exam W Interpretation Dilated Macular Or Fundus Exam Findings Communicat Macular Or Fundus Exam Performed 2007 Communication Performed Eye Exam & Treatment Dilated Retinal Exam W Interpretation Dilated Macular Or Fundus Exam Findings Communicat Communication Performed Communication Not Performed Macular Or Fundus Exam Performed 2007 Eye Exam & Treatment Advance Directives Directive Yes / No Effective Date File Name No Information Encounters Encounter Description Practice Location Reason(s) For Visit Diagnoses Date Provider Providers Copied on Encounter [facility]outpati ent Visit, [facility] [address], [place], [place], [id number], [place] tel:[phone] [facility] No Information Mar-3 0-201 0 Matthews Annette. [address] , [address], [place], [address], [place]. tel:[phone] [facility], [address], [place], [place], [id number], tel:[phone] [facility] No Information Feb-2 0-200 9 Renteria OD Carlos. [address] , [address], [place], [place], [facility], [place]. tel:[phone] [facility], [address] [place] [address] [address], [place], [place], [id number], [place] tel:[phone] [facility] No Information Sep-1 9-200 8 Renteria OD Carlos. [address] , [address], [place], [place], [facility], [place]. tel:[phone] [facility], [address] [place] [address] [address], [place], [place], [id number], [place] tel:[phone] [facility] No Information Sep-1 1-200 8 Renteria OD Carlos. [address] , [address], [place], [place], [facility], [place]. tel:[phone] [facility], [address] [place] [address] [address], [place], [place], [address], [place] tel:[phone] [facility] No Information Sep-0 5-200 8 Renteria OD Carlos. [address], [place], [place], [facility], [place]. tel:[phone] [facility], [address] [place] [address] [address], [place], [place], [id number], [place] tel:[phone] [facility] No Information Aug-2 9-200 8 Renteria OD Carlos. [address], [place], [place], [facility], [place]. tel:[phone] Office Consultation [facility], [address], [place], [place], [id number], tel:[phone] [facility] No Information 8 Mendoza Soto. [address] [place], [place], [facility], [place]. tel:[phone] Referring Provider: Annette Glass, [address], [place], [place], [facility]. tel:[phone] [facility], [address], [place], [place], [id number], tel:[phone] [facility] No Information 8 Cassie Bryant. [address] [facility] , [address], [place], [place], [facility], . tel:[phone] [facility], [address], [place], [place], [id number], tel:[phone] [facility] No Information 7 Cassie Bryant. [address] [facility] , [address], [place], [place], [facility], . tel:[phone] Referring Provider: Sujit Palomo MD, [address], [place], [address]. tel:[phone] Family History Family Member Type Diagnosis Age At Onset No Information Payers Payer name Insurance type Covered republican ID Authoriza tion(s) [place] [id number] Social History Type Description Quantity Date Captured Comments Sex Female Smoking Status No Information Chief Complaint And Reason For Visit No Information Reason For Referral Reason For Referral No Information History Of Present Illness Encounter Date Complaint History Of Prese nt Illness No Information Functional Status Date Functional Assessmen t No Information Instructions Date Instruction Additional Infor mation No Information Assessments Type Assessment Date No Information Patient Care Teams Name Effective Dates (start - stop) Status Members No Information
[2024-10-08 10:39] LABS: Hematocrit 33.6 % (37.0-47.0); Hemoglobin 10.4 g/dL (12.0-15.0); Mean Corpuscular Hemoglobin 27.1 pg (26-34); Mean Corpuscular Volume 87.5 fl (80-100); Mean Platelet Volume 10.1 fl (7.4-10.4); Platelet Count Result 331 k/mm3 (150-375); Red Blood Count 3.84 M/mm3 (4.2-5.4); Red Cell Distribution Width 13.8 % (11.5-14.5); White Blood Count 4.9 K/mm3 (4.5-10.0)
[2024-10-08 10:44] LABS: Add Urine Microscopic? YES; Appearance Urine Clear (Clear); Bacteria Urine None Seen /hpf; Bilirubin Urine Negative (Negative); Blood Urine Negative (Negative); Color Urine Yellow (Yellow); Glucose Urine UA 2+ mg/dL (Negative); Ketones Urine Negative (Negative); Leukocyte Esterase Ur Trace LEU/UL (Negative); Nitrate Urine Negative (Negative); Non Pathogenic Casts 0-2; Protein Urine Negative (Negative); RBC Urine 0-2 /hpf (0-2); Specific Grav Ur 1.011 (1.001-1.035); Squamous Epithelial Cell Urine None Seen /hpf (Few); WBC Urine 0-5 /hpf (0-3); pH Urine 6.5 (5.0-9.0)
[2024-10-08 10:44] LABS: Alanine Aminotransferase 24 U/L (6-35); Albumin Level 4.1 g/dL (3.5-5.1); Alkaline Phosphatase 97 U/L (38-126); Anion Gap 8 mmol/L (4-12); Aspartate Amino Transferase 25 U/L (14-36); Bilirubin,Total 0.3 mg/dL (0.2-1.3); Blood Urea Nitrogen 36 mg/dL (7-17); Calcium 8.9 mg/dL (8.4-10.2); Carbon Dioxide 27 mmol/L (22-30); Chloride 97 mmol/L (98-107); Cholesterol 258 mg/dL (0-200); Estimated Glomerular Filt Rate 31; Glucose 314 mg/dL (65-110); HDL Direct 66 mg/dL; Potassium 4.9 mmol/L (3.4-5.0); Sodium 132 mmol/L (137-145); Triglycerides 85 mg/dL (<150)
[2024-10-08 10:55] LABS: LDL Cholesterol Direct 143 mg/dL
[2024-10-08 11:15] LABS: Thyroid Stimulating Hormone 0.749 uIU/mL (0.465-4.680)
[2024-10-08 11:46] LABS: Creatinine Urine 36.9 mg/dL
[2024-10-08 11:51] LABS: MALB Creatinine Ratio 146.6 mg/g (0-30); Microalbumin Urine Random 54.1 mg/L (0-16.7)
== END 2024-10-08 10:12 | disposition home or self-care (01) ==
PROVIDERS: PCP Family Medicine; Visit Provider Family Medicine
DX: E78.2 Mixed hyperlipidemia (principal); E11.319 Type 2 diabetes mellitus with unspecified diabetic retinopathy without macular edema; N18.30 Chronic kidney disease, stage 3 unspecified; I12.9 Hypertensive chronic kidney disease with stage 1 through stage 4 chronic kidney disease, or unspecified chronic kidney disease
CPT/HCPCS: 36415; 80053; 80061; 81001; 82043; 83036; 84443; 85027

== ENCOUNTER 2025-02-02 08:46 | Outpatient (CLI) | payer MEDICARE, SELFPAY ==
--- OUTSIDE RECORDS SUMMARY | 2025-02-02 08:54 | XMS_ITS | Clinical Summary ---
Author Organization [facility] [address] Address [address] [place] [address] Care Team Providers Care Driver Material Handler Name Role Phone Sujit Palomo MD Primary [...] in the morning 0 [address] (VOLTAREN) 75 mg EC tablet [...] UNDER THE SKIN EVERY EVENING 4 Active pen needle, diabetic 31 gauge x 5/16 needle USE DIRECTED TO INJECT INSULIN UP TO 4 TIMES DAILY. 5 Active Active Problems Problem Noted Date Diagnosed Date Pre-syncope 11/10/2024 Dizziness 08/20/2021 Non-rheumatic aortic stenosis 07/16/2020 Palpitations [...] impairment 09/07/2014 Overview (10/04/2016): Chronic renal insufficiency Encounters Date Type Department Care Team Description 12/20/2024 11:00 AM CDT Office Visit [facility] Cardiology [address] [place] [address] [place] [phone] Angela Gillespie NP Palpitations; Hypertension associated with diabetes (HCC); Non-rheumatic aortic stenosis 11/24/2024 Results Follow-Up [facility] Cardiology [address] [place] [address] [place] [phone] Adin Chadwick MD MCT Mobile Cardiac Telemetry Event Monitor 11/10/2024 10:30 AM CDT Ancillary Procedure [facility] Cardiology [address] [place] [address] [place] [phone] Palpitations; Pre-syncope 11/10/2024 9:15 AM CDT Office Visit [facility] Cardiology [address] [place] [phone] Adin Chadwick MD Palpitations (Primary Dx); Hypertension associated with diabetes (HCC); Non-rheumatic aortic stenosis; Hyperlipidemia associated with type 2 diabetes mellitus (HCC); Pre-syncope from Last 3 Months Surgical History Surgery Date Site/Laterality Comments HYSTERECTOMY [...] on file Legal Sex Female 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 Gender Identity Not on file Sexual Orientation Not on file Obstetrics History Last Filed Vital Signs Vital Sign Reading Time Taken Comments Blood Pressure 142/68 12/20/2024 11:08 AM CDT Pulse 67 12/20/2024 11:08 AM CDT Temperature 36.2 C (97.1 F) 07/04/2020 10:58 AM ACQUISITIONS ASSISTANT Respiratory Rate 16 04/23/2023 11:33 AM CDT Oxygen Saturation 97% 12/20/2024 11:08 AM CDT Inhaled Oxygen Concentration - - Weight 52.6 kg (116 lb) 12/20/2024 11:08 AM CDT Height 152.4 cm (5') 12/20/2024 11:08 AM CDT Body Mass Index 22.65 12/20/2024 11:08 AM CDT Plan of Treatment Health Maintenance [...] of 2) 07/06/2020 05/11/2020 Influenza Vaccine (#1) 2025 0, 04/26/2019, 04/16/2018, Additional history exists Pneumococcal vaccine 65+ Completed 05/11/2020, 03/30 Procedures Procedure Name Priority Date/Time Associated Diagnosis Comments MCT - MOBILE CARDIAC TELEMETRY EVENT MONITOR Routine 11/10/2024 9:59 AM CDT Palpitations Pre-syncope from Last 3 Months Results * [facility] Mobile Cardiac Telemetry Event Monitor (11/10/2024 9:59 AM CDT) Anatomical Region Laterality Modality Electrocardiogra phy Narrative 11/23/2024 2:40 PM CDT [employer] PROFESSOR REPORT Patient Name: Carmelina Valencia Date of : 1940 Requesting Physician: Dr. Chadwick Date of interpretation: 11/23/24 Type of monitor : One-week event monitor Date of the study/Enrollment period: 11/10/2024-11/16/2024 Indication: Syncope Quality of the study: Adequate Interpretation: Available rhythm strips showed predominant rhythm is sinus rhythm, heart rate ranged between 51 beats per minute to 93 beats per minute, average heart rate 66 beats per minute. Occasional ventricular and supraventricular beats with a burden of 2% and <1% respectively for the duration of the study. No significant arrhythmias or heart blocks were noted. No symptoms reported. Conclusions: Underlying rhythm is sinus rhythm, average heart rate 66 beats per minute. Occasional ventricular and supraventricular ectopy with a burden of 2% and <1% respectively for the duration of the study. No other significant arrhythmias. No symptoms reported. Voice recognition software was used to complete this document, therefore, siderographer variances may occur. Merlin Villar MD, [facility] 11/23/24 Procedure Note Merlin Villar MD - 11/23/2024 [employer] PROFESSOR REPORT Patient Name: Carmelina Valencia Date of : 1940 Requesting Physician: Dr. Chadwick Date of interpretation: 11/23/24 Type of monitor : One-week event monitor Date of the study/Enrollment period: 11/10/2024-11/16/2024 Indication: Syncope Quality of the study: Adequate Interpretation: Available rhythm strips showed predominant rhythm issinus rhythm, heart rate ranged between 51 beats per minute to 93 beatsper minute, average heart rate 66 beats per minute. Occasionalventricular and supraventricular beats with a burden of 2% and <1%respectively for the duration of the study. No significant arrhythmias orheart blocks were noted. No symptoms reported. Conclusions: Underlying rhythm is sinus rhythm, average heart rate 66 beats perminute. Occasional ventricular and supraventricular ectopy with a burden of 2% and<1% respectively for the duration of the study. No other significant arrhythmias. No symptoms reported. Voice recognition software was used to complete this document, therefore,siderographer variances may occur. Merlin Villar MD, [facility] 11/23/24 Adin Chadwick MD CV CARDIAC SERVICES PROCE [facility] Final Result from Last 3 Months Insurance [address] [address] [facility] MEDICARE ADVANTAGE [facility] MEDICARE ADVANTAGE Care Teams Driver Material Handler Relationship Specialty Start Date End Date Sujit Palomo MD [address] [facility] [address] [place] [address] PCP - General 09/26/16
--- OUTSIDE RECORDS SUMMARY | 2025-02-02 08:54 | XMS_ITS | Continuity of Care Document ---
Author Organization [facility] Address [address] [place] [address] Phone Care Team Providers Care Print Journalist Name Role Phone Annette Matthews Unavailable Unavailable Procedures Procedure Date Office/outpatient Visit, Est Dilated Retinal Exam W Interpretation Mi CL Replacement - [employer] Disp W/BW Soft [facility] CL Replacement - [employer] Disp W/BW Soft [facility] [facility] CL Replacement - [employer] Disp W/BW Soft [facility] No Charge Contact Lens Check Contact [...] Copied on Encounter Office[facility]outpati ent [facility], [facility] [address], [place], [place], [id number], [place] tel:[phone] [facility] No Information Mar-3 0-201 0 Matthews Annette. [address] , [address], [place], [address], [place]. tel:[phone] [facility], [address], [place], [place], [id number], tel:[phone] [facility] No Information Feb-2 0-200 9 Renteria OD Carlos. [address] , [address], [place], [place], [facility] [place], [place]. tel:[phone] [facility], [id number] [place] [address] [address], [place], [place], [id number], [place] tel:[phone] [facility] No Information Sep-1 9-200 8 Renteria OD Carlos. [address], [place], [place], [facility] [place]. tel:[phone] [facility], [id number] [place] [address] [address], [place], [place], [id number], [place] tel:[phone] [facility] No Information Sep-1 1-200 8 Renteria OD Carlos. [address], [place], [place], [facility] [place]. tel:[phone] [facility], [address] [place] [address] [address], [place], [place], [id number], [place] tel:[phone] [facility] No Information Sep-0 5-200 8 Renteria OD Carlos. [address], [place], [place], [facility] [place]. tel:[phone] [facility], [address] [place] [address] [address], [place], [place], [id number], [place] tel:[phone] [facility] No Information Aug-2 9-200 8 Renteria OD Carlos. [address], [place], [place], [facility] [place]. tel:[phone] Office Consultation [facility], [address], [place], [place], [id number], tel:[phone] [facility] No Information 8 Mendoza Soto. [address] [place], [place], [facility] [place], [place]. tel:[phone] Referring Provider: Annette Glass, [address], [place], [place], [facility] [place]. tel:[phone] [facility], [address], [place], [place], [id number], tel:[phone] [facility] No Information 8 Cassie Bryant. [address] , [address], [place], [place], [facility] [place], . tel:[phone] [facility], [address], [place], [place], [id number], tel:[phone] [facility] No Information 7 Cassie Bryant. [address] , [address], [place], [place], [facility] [place], . tel:[phone] Referring Provider: Sujit Palomo MD, [address], [place], [address]. tel:[phone] Family History Family Member Type Diagnosis Age At Onset No Information Payers Payer name Insurance type Covered republican ID Authoriza tion(s) [place] [id number] Social History Type Description Quantity Date Captured [...]
[2025-02-02 09:34] LABS: Alanine Aminotransferase 14 U/L (6-35); Albumin Level 4.0 g/dL (3.5-5.1); Alkaline Phosphatase 79 U/L (38-126); Anion Gap 9 mmol/L (4-12); Aspartate Amino Transferase 23 U/L (14-36); Bilirubin,Total 0.4 mg/dL (0.2-1.3); Blood Urea Nitrogen 25 mg/dL (7-17); Calcium 9.3 mg/dL (8.4-10.2); Carbon Dioxide 26 mmol/L (22-30); Chloride 91 mmol/L (98-107); Estimated Glomerular Filt Rate 43; Glucose 272 mg/dL (65-110); Potassium 3.8 mmol/L (3.4-5.0); Sodium 126 mmol/L (137-145); Total Protein 7.2 g/dL (6.3-8.2)
[2025-02-02 09:43] LABS: Hemoglobin A1C 9.0 % (<5.7)
== END 2025-02-02 08:47 | disposition home or self-care (01) ==
PROVIDERS: PCP Family Medicine; Visit Provider Family Medicine
DX: E11.319 Type 2 diabetes mellitus with unspecified diabetic retinopathy without macular edema (principal)
CPT/HCPCS: 36415; 80053; 83036

== ENCOUNTER 2025-06-07 09:34 | Outpatient (CLI) | payer MEDICARE, SELFPAY ==
[2025-06-07 10:33] LABS: Hemoglobin A1C 7.9 % (<5.7)
[2025-06-07 11:05] LABS: Alanine Aminotransferase 14 U/L (6-35); Albumin Level 3.9 g/dL (3.5-5.1); Alkaline Phosphatase 73 U/L (38-126); Anion Gap 5 mmol/L (4-12); Aspartate Amino Transferase 24 U/L (14-36); Bilirubin,Total 0.4 mg/dL (0.2-1.3); Blood Urea Nitrogen 33 mg/dL (7-17); Calcium 9.3 mg/dL (8.4-10.2); Carbon Dioxide 28 mmol/L (22-30); Chloride 100 mmol/L (98-107); Estimated Glomerular Filt Rate 38; Glucose 149 mg/dL (65-110); Potassium 4.0 mmol/L (3.4-5.0); Sodium 133 mmol/L (137-145); Total Protein 7.0 g/dL (6.3-8.2)
== END 2025-06-07 09:35 | disposition home or self-care (01) ==
PROVIDERS: PCP Family Medicine; Visit Provider Family Medicine
DX: E11.9 Type 2 diabetes mellitus without complications (principal)
CPT/HCPCS: 36415; 80053; 83036